=== PATIENT | male | born 1940 | race Caucasian/White ===

== ENCOUNTER 2016-10-26 08:00 | Outpatient (CLI) | payer MEDICARE, OTHER | END 2016-10-26 08:01 | disposition home or self-care (01) | DX: I48.91 Unspecified atrial fibrillation (principal) ==

== ENCOUNTER 2016-11-25 12:47 | Outpatient (CLI) | payer MEDICARE, OTHER | END 2016-11-25 12:48 | disposition home or self-care (01) | DX: I48.91 Unspecified atrial fibrillation (principal) ==

== ENCOUNTER 2016-12-24 13:59 | Outpatient (CLI) | payer MEDICARE, OTHER | END 2016-12-24 14:00 | disposition home or self-care (01) | DX: I48.91 Unspecified atrial fibrillation (principal) ==

== ENCOUNTER 2017-01-02 18:34 | Inpatient (IN) | payer MEDICARE, OTHER ==
[2017-01-02] MEDS ORDERED: LIDOCAINE 2%-EPI 1:100000 20 ML MDV ONE (20:53)
[2017-01-02] MEDS ORDERED: MORPHINE 2 MG/ML SYRINGE IVP STA (21:14)
[2017-01-02] MEDS ORDERED: VANCOMYCIN INJ 1 GM in SODIUM CHLORIDE 0.9% 250 ML IV STA (21:14)
[2017-01-02] MEDS ORDERED: PIPERACILLIN/TAZOBACTAM 3.375 GM in SODIUM CHLORIDE 0.9% MINIBAG 100 ML IV STA (21:14)
[2017-01-02] MEDS ORDERED: SODIUM CHLORIDE 0.9% 1,000 ML IV ONE (21:14)
[2017-01-02] MEDS ORDERED: MORPHINE 2 MG/ML SYRINGE ONE (21:28)
[2017-01-02] MEDS ORDERED: HYDROmorphone 1 MG/ML SYRINGE IVP STA (22:11)
[2017-01-02] MEDS ORDERED: HYDROmorphone 1 MG/ML SYRINGE ONE (22:11)
[2017-01-02] MEDS ORDERED: WATER FOR INJECTION,STERILE 10 ML ONE (22:12)
[2017-01-02] MEDS ORDERED: VANCOMYCIN 1 GM VIAL ONE (22:12)
[2017-01-02] MEDS ORDERED: PROCHLORPERAZINE 10 MG/2 ML VIAL IVP PRN (22:45)
[2017-01-02] MEDS ORDERED: ONDANSETRON 4 MG/2 ML VIAL IVP PRN (22:45)
[2017-01-02] MEDS ORDERED: VANCOMYCIN PER PHARMACY 1 GM in SODIUM CHLORIDE 0.9% 250 ML IV SCH (23:00)
[2017-01-03] MEDS ORDERED: PIPERACILLIN/TAZOBACTAM 3.375 GM in SODIUM CHLORIDE 0.9% MINIBAG 100 ML IV SCH ×2
[2017-01-03] MEDS: HYDROmorphone 1 MG/ML SYRINGE IVP PRN ×4 (00:06→21:57)
[2017-01-03] MEDS: SODIUM CHLORIDE 0.9% 1,000 ML IV SCH ×3 (00:16→22:04)
[2017-01-03] MEDS: cloNIDine 0.1 MG TABLET PO SCH ×3 (00:24→22:00)
[2017-01-03] MEDS: LOSARTAN 50 MG TABLET PO SCH ×3 (00:32→22:00)
[2017-01-03] MEDS: PIPERACILLIN/TAZOBACTAM 3.375 GM in SODIUM CHLORIDE 0.9% MINIBAG 100 ML IV SCH ×4 (03:19→21:58)
[2017-01-03] MEDS: PANTOPRAZOLE 40 MG TABLET PO SCH (06:35)
[2017-01-03] MEDS: SODIUM CHLORIDE FLUSH 0.9% 10 ML SYRINGE IVP SCH ×3 (06:36→22:04)
[2017-01-03] MEDS: METOPROLOL SUCCINATE 50 MG TABLET PO SCH ×2 (09:01→22:00)
[2017-01-03] MEDS: FOLIC ACID 1 MG TABLET PO SCH (09:01)
[2017-01-03] MEDS: THIAMINE 100 MG TABLET PO SCH (09:01)
[2017-01-03] MEDS: ASPIRIN EC 81 MG TABLET PO SCH (09:01)
[2017-01-03] MEDS: amLODIPine 5 MG TABLET PO SCH (09:01)
[2017-01-03] MEDS: POLYETHYLENE GLYCOL 3350 17 GM PACKET PO SCH (09:02)
[2017-01-03] MEDS: oxyCODONE 5 MG TABLET PO PRN ×2 (09:08→22:01)
[2017-01-03] MEDS: VANCOMYCIN INJ 1 GM in SODIUM CHLORIDE 0.9% 250 ML IV SCH (13:20)
[2017-01-03] MEDS ORDERED: WARFARIN 1 MG TABLET PO SCH (14:00)
[2017-01-03] MEDS: ATORVASTATIN 10 MG TABLET PO SCH (22:00)
[2017-01-04] MEDS: VANCOMYCIN INJ 1 GM in SODIUM CHLORIDE 0.9% 250 ML IV SCH ×3 (01:17→14:15)
[2017-01-04] MEDS: PIPERACILLIN/TAZOBACTAM 3.375 GM in SODIUM CHLORIDE 0.9% MINIBAG 100 ML IV SCH ×4 (03:06→20:35)
[2017-01-04] MEDS: HYDROmorphone 1 MG/ML SYRINGE IVP PRN ×6 (04:49→23:29)
[2017-01-04] MEDS: SODIUM CHLORIDE 0.9% 1,000 ML IV SCH ×2 (06:36→23:32)
[2017-01-04] MEDS: SODIUM CHLORIDE FLUSH 0.9% 10 ML SYRINGE IVP SCH ×3 (06:37→15:47)
[2017-01-04] MEDS: PANTOPRAZOLE 40 MG TABLET PO SCH (06:52)
[2017-01-04] MEDS: oxyCODONE 5 MG TABLET PO PRN ×3 (06:53→17:18)
[2017-01-04] MEDS: FOLIC ACID 1 MG TABLET PO SCH (08:11)
[2017-01-04] MEDS: amLODIPine 5 MG TABLET PO SCH (08:11)
[2017-01-04] MEDS: LOSARTAN 50 MG TABLET PO SCH ×2 (08:11→20:49)
[2017-01-04] MEDS: ASPIRIN EC 81 MG TABLET PO SCH (08:12)
[2017-01-04] MEDS: cloNIDine 0.1 MG TABLET PO SCH ×2 (08:12→22:30)
[2017-01-04] MEDS: THIAMINE 100 MG TABLET PO SCH (08:12)
[2017-01-04] MEDS: METOPROLOL SUCCINATE 50 MG TABLET PO SCH ×2 (08:12→20:49)
[2017-01-04] MEDS: POLYETHYLENE GLYCOL 3350 17 GM PACKET PO SCH (08:12)
[2017-01-04] MEDS: SENNA 8.6 MG TABLET PO SCH (20:49)
[2017-01-04] MEDS: ATORVASTATIN 10 MG TABLET PO SCH (20:49)
[2017-01-05] MEDS: SODIUM CHLORIDE 0.9% 1,000 ML IV SCH ×3 (00:40→22:25)
[2017-01-05] MEDS: SENNA 8.6 MG TABLET PO SCH ×3 (01:41→13:39)
[2017-01-05] MEDS: VANCOMYCIN INJ 1 GM in SODIUM CHLORIDE 0.9% 250 ML IV SCH ×2 (01:44→13:39)
[2017-01-05] MEDS: DOCUSATE SODIUM 250 MG CAPSULE PO PRN (01:55)
[2017-01-05] MEDS: oxyCODONE 5 MG TABLET PO PRN ×4 (01:55→21:29)
[2017-01-05] MEDS: PIPERACILLIN/TAZOBACTAM 3.375 GM in SODIUM CHLORIDE 0.9% MINIBAG 100 ML IV SCH ×4 (03:17→21:27)
[2017-01-05] MEDS: SODIUM CHLORIDE FLUSH 0.9% 10 ML SYRINGE IVP SCH ×3 (06:07→22:26)
[2017-01-05] MEDS: PANTOPRAZOLE 40 MG TABLET PO SCH (06:23)
[2017-01-05] MEDS: HYDROmorphone 1 MG/ML SYRINGE IVP PRN ×3 (08:11→19:52)
[2017-01-05] MEDS: POLYETHYLENE GLYCOL 3350 17 GM PACKET PO SCH (08:14)
[2017-01-05] MEDS: METOPROLOL SUCCINATE 50 MG TABLET PO SCH ×2 (08:15→21:30)
[2017-01-05] MEDS: ASPIRIN EC 81 MG TABLET PO SCH (08:16)
[2017-01-05] MEDS: amLODIPine 5 MG TABLET PO SCH (08:16)
[2017-01-05] MEDS: FOLIC ACID 1 MG TABLET PO SCH (08:17)
[2017-01-05] MEDS: LOSARTAN 50 MG TABLET PO SCH ×2 (08:18→21:30)
[2017-01-05] MEDS: THIAMINE 100 MG TABLET PO SCH (08:18)
[2017-01-05] MEDS: cloNIDine 0.1 MG TABLET PO SCH ×2 (08:18→21:30)
[2017-01-05] MEDS: ATORVASTATIN 10 MG TABLET PO SCH (21:29)
[2017-01-05] MEDS ORDERED: MAGNESIUM HYDROXIDE 2,400 MG/30 ML UDC PO ONE (22:00)
[2017-01-06] MEDS: SODIUM CHLORIDE 0.9% 1,000 ML IV SCH ×3 (01:04→20:05)
[2017-01-06] MEDS: oxyCODONE 5 MG TABLET PO PRN ×3 (02:34→13:08)
[2017-01-06] MEDS: PIPERACILLIN/TAZOBACTAM 3.375 GM in SODIUM CHLORIDE 0.9% MINIBAG 100 ML IV SCH ×3 (02:35→14:17)
[2017-01-06] MEDS: SODIUM CHLORIDE FLUSH 0.9% 10 ML SYRINGE IVP SCH ×3 (05:32→20:24)
[2017-01-06] MEDS: PANTOPRAZOLE 40 MG TABLET PO SCH (06:06)
[2017-01-06] MEDS ORDERED: VANCOMYCIN INJ 1 GM in SODIUM CHLORIDE 0.9% 250 ML IV SCH (08:00)
[2017-01-06] MEDS: POLYETHYLENE GLYCOL 3350 17 GM PACKET PO SCH (08:35)
[2017-01-06] MEDS: LOSARTAN 50 MG TABLET PO SCH ×2 (08:36→20:32)
[2017-01-06] MEDS: amLODIPine 5 MG TABLET PO SCH (08:36)
[2017-01-06] MEDS: cloNIDine 0.1 MG TABLET PO SCH ×2 (08:36→20:23)
[2017-01-06] MEDS: ASPIRIN EC 81 MG TABLET PO SCH (08:36)
[2017-01-06] MEDS: THIAMINE 100 MG TABLET PO SCH (08:36)
[2017-01-06] MEDS: FOLIC ACID 1 MG TABLET PO SCH (08:36)
[2017-01-06] MEDS: METOPROLOL SUCCINATE 50 MG TABLET PO SCH ×2 (08:37→20:24)
[2017-01-06] MEDS ORDERED: HYDROmorphone 1 MG/ML SYRINGE IVP STA (15:22)
[2017-01-06] MEDS ORDERED: PHYTONADIONE 10 MG/ML AMP IVP STA ×2 (15:35→16:17)
[2017-01-06] MEDS: ACETAMINOPHEN 325 MG TABLET PO PRN (16:56)
[2017-01-06] MEDS ORDERED: PHYTONADIONE INJ (ADULT) 10 MG in SODIUM CHLORIDE 0.9% 50 ML IV ONE (17:00)
[2017-01-06] MEDS: AMPICILLIN/SULBACTAM 3 GM in SODIUM CHLORIDE 0.9% MINIBAG 100 ML IV SCH (18:40)
[2017-01-06] MEDS: OXYBUTYNIN 5MG TABLET PO SCH (20:23)
[2017-01-06] MEDS: ATORVASTATIN 10 MG TABLET PO SCH (20:23)
[2017-01-06] MEDS ORDERED: METOPROLOL TARTRATE 25 MG TABLET PO SCH (21:00)
[2017-01-06] MEDS: HYDROmorphone 1 MG/ML SYRINGE IVP PRN (21:06)
[2017-01-07] MEDS ORDERED: hydrALAZINE INJ 20 MG/ML VIAL IVP SCH (00:25)
[2017-01-07] MEDS: AMPICILLIN/SULBACTAM 3 GM in SODIUM CHLORIDE 0.9% MINIBAG 100 ML IV SCH ×4 (00:37→20:08)
[2017-01-07] MEDS: HYDROmorphone 1 MG/ML SYRINGE IVP PRN ×5 (02:54→16:55)
[2017-01-07] MEDS ORDERED: amLODIPine 5 MG TABLET PO STA ×2 (03:05)
[2017-01-07] MEDS: PANTOPRAZOLE 40 MG TABLET PO SCH (06:04)
[2017-01-07] MEDS: SODIUM CHLORIDE FLUSH 0.9% 10 ML SYRINGE IVP SCH ×3 (06:04→16:32)
[2017-01-07] MEDS: POTASSIUM CHLOR 10 MEQ/100 ML 100 ML IV SCH ×5 (07:52→17:44)
[2017-01-07] MEDS: SODIUM CHLORIDE FLUSH 0.9% 10 ML SYRINGE IVP PRN ×4 (07:52→16:32)
[2017-01-07] MEDS: METOPROLOL SUCCINATE 50 MG TABLET PO SCH ×2 (08:24→21:45)
[2017-01-07] MEDS: amLODIPine 5 MG TABLET PO SCH (08:25)
[2017-01-07] MEDS ORDERED: LIDOCAINE-MPF 2% 5 ML VIAL IM ONE (09:50)
[2017-01-07] MEDS ORDERED: MIDAZOLAM 2 MG/2 ML VIAL IVP ONE (09:50)
[2017-01-07] MEDS ORDERED: DEXAMETHASONE 4 MG/ML VIAL IVP ONE (09:50)
[2017-01-07] MEDS ORDERED: PROPOFOL 200 MG/20 ML VIAL IVP ONE (09:50)
[2017-01-07] MEDS ORDERED: ePHEDrine 50 MG/ML AMP IVP ONE (09:50)
[2017-01-07] MEDS ORDERED: TRANEXAMIC ACID 1,000 MG/10 ML VIAL IV ONE (09:50)
[2017-01-07] MEDS ORDERED: ONDANSETRON 4 MG/2 ML VIAL IVP ONE (09:50)
[2017-01-07] MEDS ORDERED: fentaNYL 100 MCG/2 ML VIAL IVP ONE (09:50)
[2017-01-07] MEDS ORDERED: LACTATED RINGERS 1,000 ML IV ONE ×4 (10:03→11:55)
[2017-01-07] MEDS: LOSARTAN 50 MG TABLET PO SCH ×2 (10:12→21:45)
[2017-01-07] MEDS: ASPIRIN EC 81 MG TABLET PO SCH (10:12)
[2017-01-07] MEDS: cloNIDine 0.1 MG TABLET PO SCH ×2 (10:12→21:46)
[2017-01-07] MEDS: FOLIC ACID 1 MG TABLET PO SCH (10:12)
[2017-01-07] MEDS: POLYETHYLENE GLYCOL 3350 17 GM PACKET PO SCH (10:13)
[2017-01-07] MEDS: THIAMINE 100 MG TABLET PO SCH (10:13)
[2017-01-07] MEDS: fentaNYL 100 MCG/2 ML VIAL ONE ×2 (12:08→12:14)
[2017-01-07] MEDS: HYDROmorphone 1 MG/ML SYRINGE ONE ×3 (12:25→12:45)
[2017-01-07] MEDS ORDERED: HYDROmorphone 1 MG/ML SYRINGE ONE (12:42)
[2017-01-07] MEDS: oxyCODONE 5 MG TABLET PO PRN ×2 (14:21→21:45)
[2017-01-07] MEDS: ACETAMINOPHEN 325 MG TABLET PO PRN (16:30)
[2017-01-07] MEDS: ATORVASTATIN 10 MG TABLET PO SCH (21:45)
[2017-01-07] MEDS: OXYBUTYNIN 5MG TABLET PO SCH (21:48)
[2017-01-08] MEDS: AMPICILLIN/SULBACTAM 3 GM in SODIUM CHLORIDE 0.9% MINIBAG 100 ML IV SCH ×2 (00:16→06:42)
[2017-01-08] MEDS: SODIUM CHLORIDE FLUSH 0.9% 10 ML SYRINGE IVP PRN ×2 (00:17→08:43)
[2017-01-08] MEDS: oxyCODONE 5 MG TABLET PO PRN ×3 (01:51→16:06)
[2017-01-08] MEDS: PANTOPRAZOLE 40 MG TABLET PO SCH (06:41)
[2017-01-08] MEDS: SODIUM CHLORIDE FLUSH 0.9% 10 ML SYRINGE IVP SCH ×3 (06:42→20:46)
[2017-01-08] MEDS: HYDROmorphone 1 MG/ML SYRINGE IVP PRN ×4 (07:25→17:15)
[2017-01-08] MEDS: LORazepam 2 MG/ML SYRINGE IVP PRN ×2 (08:42→17:15)
[2017-01-08] MEDS: ASPIRIN EC 81 MG TABLET PO SCH (08:44)
[2017-01-08] MEDS: FOLIC ACID 1 MG TABLET PO SCH (08:44)
[2017-01-08] MEDS: THIAMINE 100 MG TABLET PO SCH (08:44)
[2017-01-08] MEDS: amLODIPine 5 MG TABLET PO SCH (08:44)
[2017-01-08] MEDS: cloNIDine 0.1 MG TABLET PO SCH ×2 (08:44→20:46)
[2017-01-08] MEDS: METOPROLOL SUCCINATE 50 MG TABLET PO SCH ×2 (08:44→20:46)
[2017-01-08] MEDS: LOSARTAN 50 MG TABLET PO SCH ×2 (08:45→20:46)
[2017-01-08] MEDS: POLYETHYLENE GLYCOL 3350 17 GM PACKET PO SCH (08:46)
[2017-01-08] MEDS: cefTRIAXone 2 GM in SODIUM CHLORIDE 0.9% MINIBAG 100 ML IV SCH (08:47)
[2017-01-08] MEDS: SODIUM CHLORIDE 0.9% 1,000 ML IV SCH ×3 (08:47→23:40)
[2017-01-08] MEDS ORDERED: WARFARIN 1 MG TABLET PO SCH (12:00)
[2017-01-08] MEDS: OXYBUTYNIN 5MG TABLET PO SCH (20:46)
[2017-01-08] MEDS: ATORVASTATIN 10 MG TABLET PO SCH (20:46)
[2017-01-09] MEDS: oxyCODONE 5 MG TABLET PO PRN ×4 (04:33→21:13)
[2017-01-09] MEDS: HYDROmorphone 1 MG/ML SYRINGE IVP PRN ×5 (04:54→23:59)
[2017-01-09] MEDS: SODIUM CHLORIDE FLUSH 0.9% 10 ML SYRINGE IVP SCH ×3 (05:31→20:52)
[2017-01-09] MEDS: PANTOPRAZOLE 40 MG TABLET PO SCH (06:17)
[2017-01-09] MEDS: SODIUM CHLORIDE 0.9% 1,000 ML IV SCH ×3 (07:15→23:58)
[2017-01-09] MEDS ORDERED: POTASSIUM CHLORIDE 20 MEQ TABLET PO ONE (08:15)
[2017-01-09] MEDS: cloNIDine 0.1 MG TABLET PO SCH ×2 (09:50→20:56)
[2017-01-09] MEDS: cefTRIAXone 2 GM in SODIUM CHLORIDE 0.9% MINIBAG 100 ML IV SCH (09:50)
[2017-01-09] MEDS: ASPIRIN EC 81 MG TABLET PO SCH (09:50)
[2017-01-09] MEDS: POLYETHYLENE GLYCOL 3350 17 GM PACKET PO SCH (09:51)
[2017-01-09] MEDS: THIAMINE 100 MG TABLET PO SCH (09:51)
[2017-01-09] MEDS: FOLIC ACID 1 MG TABLET PO SCH (09:51)
[2017-01-09] MEDS: DOCUSATE SODIUM 250 MG CAPSULE PO PRN (09:51)
[2017-01-09] MEDS: METOPROLOL SUCCINATE 50 MG TABLET PO SCH ×2 (09:54→20:56)
[2017-01-09] MEDS: amLODIPine 5 MG TABLET PO SCH (09:54)
[2017-01-09] MEDS: LOSARTAN 50 MG TABLET PO SCH ×2 (09:54→20:56)
[2017-01-09] MEDS ORDERED: MIDAZOLAM 2 MG/2 ML VIAL IVP ONE (12:00)
[2017-01-09] MEDS: WARFARIN 1 MG TABLET PO SCH (14:55)
[2017-01-09] MEDS: ATORVASTATIN 10 MG TABLET PO SCH (20:56)
[2017-01-09] MEDS: OXYBUTYNIN 5MG TABLET PO SCH (21:01)
[2017-01-09] MEDS: LORazepam 2 MG/ML SYRINGE IVP PRN (21:13)
[2017-01-10] MEDS: HYDROmorphone 1 MG/ML SYRINGE IVP PRN ×3 (05:52→20:31)
[2017-01-10] MEDS: SODIUM CHLORIDE FLUSH 0.9% 10 ML SYRINGE IVP SCH ×3 (06:50→20:35)
[2017-01-10] MEDS: PANTOPRAZOLE 40 MG TABLET PO SCH (06:53)
[2017-01-10] MEDS: cefTRIAXone 2 GM in SODIUM CHLORIDE 0.9% MINIBAG 100 ML IV SCH (08:29)
[2017-01-10] MEDS: SODIUM CHLORIDE 0.9% 1,000 ML IV SCH ×2 (08:29→17:01)
[2017-01-10] MEDS: LOSARTAN 50 MG TABLET PO SCH ×2 (08:30→20:34)
[2017-01-10] MEDS: cloNIDine 0.1 MG TABLET PO SCH ×2 (08:30→20:34)
[2017-01-10] MEDS: POLYETHYLENE GLYCOL 3350 17 GM PACKET PO SCH (08:30)
[2017-01-10] MEDS: amLODIPine 5 MG TABLET PO SCH (08:30)
[2017-01-10] MEDS: SENNA 8.6 MG TABLET PO SCH ×2 (08:30→20:35)
[2017-01-10] MEDS: ASPIRIN EC 81 MG TABLET PO SCH (08:30)
[2017-01-10] MEDS: METOPROLOL SUCCINATE 50 MG TABLET PO SCH ×2 (08:30→20:35)
[2017-01-10] MEDS: FOLIC ACID 1 MG TABLET PO SCH (08:30)
[2017-01-10] MEDS: THIAMINE 100 MG TABLET PO SCH (08:33)
[2017-01-10] MEDS: oxyCODONE 5 MG TABLET PO PRN ×2 (11:44→20:33)
[2017-01-10] MEDS: WARFARIN 1 MG TABLET PO SCH (14:50)
[2017-01-10] MEDS ORDERED: SODIUM CHLORIDE FLUSH 0.9% 10 ML SYRINGE IVP PRN ×2 (15:23)
[2017-01-10] MEDS ORDERED: MAGNESIUM HYDROXIDE 2,400 MG/30 ML UDC PO ONE (18:00)
[2017-01-10] MEDS: DOCUSATE SODIUM 250 MG CAPSULE PO SCH (20:34)
[2017-01-10] MEDS: ATORVASTATIN 10 MG TABLET PO SCH (20:34)
[2017-01-10] MEDS: OXYBUTYNIN 5MG TABLET PO SCH (20:35)
[2017-01-11] MEDS: HYDROmorphone 1 MG/ML SYRINGE IVP PRN ×4 (04:38→13:29)
[2017-01-11] MEDS: oxyCODONE 5 MG TABLET PO PRN (04:38)
[2017-01-11] MEDS: PANTOPRAZOLE 40 MG TABLET PO SCH (06:32)
[2017-01-11] MEDS: SODIUM CHLORIDE FLUSH 0.9% 10 ML SYRINGE IVP SCH ×2 (06:32→08:16)
[2017-01-11] MEDS: SODIUM CHLORIDE 0.9% 1,000 ML IV SCH ×2 (08:10)
[2017-01-11] MEDS: cefTRIAXone 2 GM in SODIUM CHLORIDE 0.9% MINIBAG 100 ML IV SCH (08:12)
[2017-01-11] MEDS: cloNIDine 0.1 MG TABLET PO SCH (08:13)
[2017-01-11] MEDS: METOPROLOL SUCCINATE 50 MG TABLET PO SCH (08:14)
[2017-01-11] MEDS: amLODIPine 5 MG TABLET PO SCH (08:15)
[2017-01-11] MEDS: LOSARTAN 50 MG TABLET PO SCH (08:15)
[2017-01-11] MEDS: SENNA 8.6 MG TABLET PO SCH ×2 (08:15)
[2017-01-11] MEDS: FOLIC ACID 1 MG TABLET PO SCH (08:15)
[2017-01-11] MEDS: ASPIRIN EC 81 MG TABLET PO SCH (08:15)
[2017-01-11] MEDS: POLYETHYLENE GLYCOL 3350 17 GM PACKET PO SCH (08:15)
[2017-01-11] MEDS: THIAMINE 100 MG TABLET PO SCH (08:15)
[2017-01-11] MEDS: DOCUSATE SODIUM 250 MG CAPSULE PO SCH (08:15)
== END 2017-01-11 13:37 | DRG 464 ==
PROC: 02PYX3Z Removal of Infusion Device from Great Vessel, External Approach (ICD-10-PCS; principal; 2017-01-07 09:00)
PROC: 0SPV0JZ Removal of Synthetic Substitute from Right Knee Joint, Tibial Surface, Open Approach (ICD-10-PCS; principal; 2017-01-07 09:00)
PROC: 02HV33Z Insertion of Infusion Device into Superior Vena Cava, Percutaneous Approach (ICD-10-PCS; principal; 2017-01-07 09:00)
PROC: 0SHC08Z Insertion of Spacer into Right Knee Joint, Open Approach (ICD-10-PCS; principal; 2017-01-07 09:00)
PROC: 0SPT0JZ Removal of Synthetic Substitute from Right Knee Joint, Femoral Surface, Open Approach (ICD-10-PCS; principal; 2017-01-07 09:00)
PROC: 02HV33Z Insertion of Infusion Device into Superior Vena Cava, Percutaneous Approach (ICD-10-PCS; 2017-01-10)
PROC: 30233N1 Transfusion of Nonautologous Red Blood Cells into Peripheral Vein, Percutaneous Approach (ICD-10-PCS; 2017-01-10)
DX: T84.53XA Infection and inflammatory reaction due to internal right knee prosthesis, initial encounter (principal); M00.9 Pyogenic arthritis, unspecified; I48.91 Unspecified atrial fibrillation; M00.861 Arthritis due to other bacteria, right knee; N17.9 Acute kidney failure, unspecified; L76.32 Postprocedural hematoma of skin and subcutaneous tissue following other procedure; Z79.82 Long term (current) use of aspirin; Y79.3 Surgical instruments, materials and orthopedic devices (including sutures) associated with adverse incidents; Z96.651 Presence of right artificial knee joint; Y83.4 Other reconstructive surgery as the cause of abnormal reaction of the patient, or of later complication, without mention of misadventure at the time of the procedure; B96.3 Hemophilus influenzae [H. influenzae] as the cause of diseases classified elsewhere; I48.2 Chronic atrial fibrillation; Y84.8 Other medical procedures as the cause of abnormal reaction of the patient, or of later complication, without mention of misadventure at the time of the procedure; Y71.8 Miscellaneous cardiovascular devices associated with adverse incidents, not elsewhere classified; Y92.239 Unspecified place in hospital as the place of occurrence of the external cause; E78.5 Hyperlipidemia, unspecified; D50.0 Iron deficiency anemia secondary to blood loss (chronic); I10 Essential (primary) hypertension; E86.0 Dehydration; E87.6 Hypokalemia; I25.10 Atherosclerotic heart disease of native coronary artery without angina pectoris; K21.9 Gastro-esophageal reflux disease without esophagitis; I25.2 Old myocardial infarction; Z96.653 Presence of artificial knee joint, bilateral; Z66 Do not resuscitate; Z95.1 Presence of aortocoronary bypass graft; Z79.01 Long term (current) use of anticoagulants; Z86.73 Personal history of transient ischemic attack (TIA), and cerebral infarction without residual deficits; Z85.828 Personal history of other malignant neoplasm of skin; Z87.891 Personal history of nicotine dependence

== ENCOUNTER 2017-01-11 11:06 | Outpatient (CLI) | payer MEDICARE, OTHER | END 2017-01-11 23:59 | disposition home or self-care (01) | DX: N39.0 Urinary tract infection, site not specified (principal) ==

== ENCOUNTER 2017-01-11 13:51 | Outpatient (CLI) | payer MEDICARE, OTHER | END 2017-01-11 13:52 | disposition home or self-care (01) | DX: Z74.01 Bed confinement status (principal) | CPT/HCPCS: A0425; A0428 ==

== ENCOUNTER 2017-01-17 10:39 | Outpatient (CLI) | payer MEDICARE, OTHER | END 2017-01-17 10:40 | disposition home or self-care (01) | DX: D50.9 Iron deficiency anemia, unspecified (principal) ==

== ENCOUNTER 2017-01-27 07:06 | Outpatient (CLI) | payer MEDICARE, OTHER | END 2017-01-27 07:07 | disposition critical access hospital (66) | DX: R55 Syncope and collapse (principal) | CPT/HCPCS: A0425; A0429 ==

== ENCOUNTER 2017-01-27 07:14 | Observation (INO) | payer MEDICARE, OTHER ==
[2017-01-27] MEDS ORDERED: oxyCODONE 5 MG TABLET PO STA (09:56)
[2017-01-27] MEDS ORDERED: oxyCODONE 5 MG TABLET ONE (10:05)
[2017-01-27] MEDS ORDERED: ONDANSETRON ODT 4 MG TABLET TL PRN (11:32)
[2017-01-27] MEDS ORDERED: ACETAMINOPHEN 325 MG TABLET PO PRN ×2 (11:32→12:12)
[2017-01-27] MEDS ORDERED: SODIUM CHLORIDE FLUSH 0.9% 10 ML SYRINGE IVP PRN ×2 (11:32→12:12)
[2017-01-27] MEDS ORDERED: oxyCODONE 5 MG TABLET PO PRN (11:49)
[2017-01-27] MEDS ORDERED: NON FORMULARY MED (Levofloxacin [Levaquin] 500 MG) PO SCH (12:00)
[2017-01-27] MEDS ORDERED: ASPIRIN EC 81 MG TABLET PO SCH ×2 (12:00→13:00)
[2017-01-27] MEDS ORDERED: SODIUM CHLORIDE 0.9% 1,000 ML IV SCH ×2 (12:00→13:00)
[2017-01-27] MEDS: ONDANSETRON ODT 4 MG TABLET TL PRN (12:38)
[2017-01-27] MEDS ORDERED: levoFLOXacin 250 MG TABLET PO SCH (13:00)
[2017-01-27] MEDS: oxyCODONE 5 MG TABLET PO PRN ×3 (13:30→21:13)
[2017-01-27] MEDS ORDERED: SODIUM CHLORIDE FLUSH 0.9% 10 ML SYRINGE IVP SCH (14:00)
[2017-01-27] MEDS: SODIUM CHLORIDE FLUSH 0.9% 10 ML SYRINGE IVP SCH ×2 (14:33→17:18)
[2017-01-27] MEDS ORDERED: MIN OIL/DIMETHICON/COCONUT OIL 92 GM TUBE TOP ONE (19:02)
[2017-01-27] MEDS ORDERED: ATORVASTATIN 40 MG TABLET PO SCH ×2 (21:00)
[2017-01-27] MEDS: METOPROLOL TARTRATE 25 MG TABLET PO SCH (21:12)
[2017-01-28] MEDS: oxyCODONE 5 MG TABLET PO PRN ×3 (01:30→15:49)
[2017-01-28] MEDS: SODIUM CHLORIDE FLUSH 0.9% 10 ML SYRINGE IVP SCH ×2 (04:59→14:40)
[2017-01-28] MEDS ORDERED: FERROUS SULFATE 325 MG TABLET PO SCH (08:00)
[2017-01-28] MEDS ORDERED: FERROUS SULFATE PO SCH (09:00)
[2017-01-28] MEDS ORDERED: FAMOTIDINE 20 MG TABLET PO SCH ×2 (09:00)
[2017-01-28] MEDS ORDERED: POLYETHYLENE GLYCOL 3350 17 GM PACKET PO SCH ×2 (09:00)
[2017-01-28] MEDS: ONDANSETRON ODT 4 MG TABLET TL PRN (09:58)
[2017-01-28] MEDS: METOPROLOL TARTRATE 25 MG TABLET PO SCH (10:44)
[2017-01-28] MEDS ORDERED: AMOX/CLAV 875 MG/125 MG TABLET PO SCH (11:00)
== END 2017-01-28 15:45 ==
DX: G93.40 Encephalopathy, unspecified (principal); R47.01 Aphasia; N17.9 Acute kidney failure, unspecified; D64.9 Anemia, unspecified; I12.0 Hypertensive chronic kidney disease with stage 5 chronic kidney disease or end stage renal disease; E86.0 Dehydration; T50.0X5A Adverse effect of mineralocorticoids and their antagonists, initial encounter; E78.5 Hyperlipidemia, unspecified; N18.3 Chronic kidney disease, stage 3 (moderate); F11.20 Opioid dependence, uncomplicated; M00.861 Arthritis due to other bacteria, right knee; B96.89 Other specified bacterial agents as the cause of diseases classified elsewhere; L89.153 Pressure ulcer of sacral region, stage 3; I48.91 Unspecified atrial fibrillation; K21.9 Gastro-esophageal reflux disease without esophagitis; I25.10 Atherosclerotic heart disease of native coronary artery without angina pectoris; I25.2 Old myocardial infarction; Z95.1 Presence of aortocoronary bypass graft; Z79.01 Long term (current) use of anticoagulants; Z86.73 Personal history of transient ischemic attack (TIA), and cerebral infarction without residual deficits; Z96.653 Presence of artificial knee joint, bilateral; Z85.828 Personal history of other malignant neoplasm of skin; Z79.82 Long term (current) use of aspirin; Z87.891 Personal history of nicotine dependence; Z82.3 Family history of stroke
CPT/HCPCS: 36415; 70450; 70544; 70551; 71010; 80048; 80053; 80061; 81003; 83605; 83690; 84484; 85025; 85610; 87040; 92523; 93005; 93010; 93306; 93880; 96360; 96361; 97162; 97165; 97530; 99285; A6250; A9270; G0378; G8978; G8979; G8986; G8987; G8988; G9162; G9163; G9164; Q0162

== ENCOUNTER 2017-01-31 08:00 | Outpatient (CLI) | payer MEDICARE, OTHER | END 2017-01-31 08:01 | DX: E87.6 Hypokalemia (principal) ==

== ENCOUNTER 2017-02-16 12:40 | Outpatient (CLI) | payer MEDICARE, OTHER | END 2017-02-16 12:41 | DX: T84.53XD Infection and inflammatory reaction due to internal right knee prosthesis, subsequent encounter (principal) ==

== ENCOUNTER 2017-02-16 12:40 | Outpatient (CLI) | payer MEDICARE, OTHER | END 2017-02-16 12:41 | disposition home or self-care (01) | DX: T84.53XD Infection and inflammatory reaction due to internal right knee prosthesis, subsequent encounter (principal) ==

== ENCOUNTER 2017-02-21 06:01 | Inpatient (IN) | payer MEDICARE, OTHER ==
[2017-02-21] MEDS ORDERED: ceFAZolin 2 GM/50 ML 50 ML IV ONE (06:26)
[2017-02-21] MEDS ORDERED: LACTATED RINGERS 1,000 ML IV ONE ×2 (06:29→13:04)
[2017-02-21] MEDS ORDERED: BUPIVACAINE 0.5%-EPI 1:200000 PF 30 ML VIAL SUBQ ONE (08:28)
[2017-02-21] MEDS ORDERED: KETOROLAC 30 MG/ML VIAL IM ONE (08:29)
[2017-02-21] MEDS ORDERED: KETOROLAC 30 MG/ML VIAL IVP ONE (08:29)
[2017-02-21] MEDS ORDERED: EPINEPHrine 1 MG/ML AMP IVP ONE (08:47)
[2017-02-21] MEDS ORDERED: MIDAZOLAM 2 MG/2 ML VIAL IVP ONE (09:00)
[2017-02-21] MEDS ORDERED: fentaNYL 100 MCG/2 ML VIAL IVP ONE (09:00)
[2017-02-21] MEDS ORDERED: ONDANSETRON 4 MG/2 ML VIAL IVP ONE (09:00)
[2017-02-21] MEDS ORDERED: ROPIVACAINE 0.5% PF 20 ML AMPULE EP ONE (09:00)
[2017-02-21] MEDS ORDERED: ACETAMINOPHEN 1,000 MG/100 ML VIAL IV ONE (09:00)
[2017-02-21] MEDS ORDERED: DEXAMETHASONE 4 MG/ML VIAL IVP ONE (09:00)
[2017-02-21] MEDS ORDERED: ROCURONIUM 50 MG/5 ML VIAL IVP ONE (09:00)
[2017-02-21] MEDS ORDERED: SUCCINYLCHOLINE 200 MG/10 ML VIAL IVP ONE (09:00)
[2017-02-21] MEDS ORDERED: PROPOFOL 200 MG/20 ML VIAL IVP ONE (09:00)
[2017-02-21] MEDS ORDERED: LABETALOL 5 MG/1 ML 20 ML MDV IV ONE (09:00)
[2017-02-21] MEDS ORDERED: MORPHINE PF 5 MG/10 ML AMP SUBQ ONE (09:07)
[2017-02-21] MEDS ORDERED: ACETAMINOPHEN 325 MG TABLET PO PRN (12:04)
[2017-02-21] MEDS ORDERED: PROCHLORPERAZINE 10 MG/2 ML VIAL IVP PRN (12:04)
[2017-02-21] MEDS ORDERED: SODIUM CHLORIDE FLUSH 0.9% 10 ML SYRINGE IVP PRN (12:04)
[2017-02-21] MEDS ORDERED: diphenhydrAMINE 25 MG CAPSULE PO PRN (12:04)
[2017-02-21] MEDS ORDERED: ONDANSETRON 4 MG/2 ML VIAL IVP PRN (12:04)
[2017-02-21] MEDS ORDERED: ACETAMINOPHEN 1,000 MG/100 ML 100 ML IV PRN (12:04)
[2017-02-21] MEDS ORDERED: traZODone 50 MG TABLET PO PRN (12:09)
--- NOTE | 2017-02-21 12:16 | OPERATIVE REPORT ---
Surgery Post-Op - General Admit Date: 02/21/17 Procedure Date: 02/21/17 Pre-Op Diagnosis: Infected Right Knee Partial Knee Replacement. s/p Removal of implants and placement of nonbiodegradable drug delivery device (PMMA plus Antibiotics). Operative Procedure: Removal of nonbiodegradable drug delivery device (PMMA plus antibiotics), revision to Right Total Knee Arthroplasty. Post-Op Diagnosis: Same. - Procedure Note Anesthesia Technique: Primary Surgeon: Canelo Jett MD Estimated Blood Loss (in cc): 50 Drain/Tube Type: positive: Other (None.) Complications: None. - Other Other Information/Narrative: Implants: Brian NexGen PS LPS-Flex Femoral Component Size G. Stemmed Tibial Component, Size 6 Taper Stem Plug Highly Cross-linked PE LPS-Flex Tibial Insert, Size GH x 10 mm. Persona All Poly Patella, 35 x 9 mm. Condition: Stable Disposition: PACU >> MedSur
[2017-02-21] MEDS: fentaNYL 100 MCG/2 ML VIAL ONE ×3 (12:18→12:39)
[2017-02-21] MEDS: D5.45NS W/20 MEQ KCL 1,000 ML IV SCH ×2 (13:13→20:59)
[2017-02-21] MEDS: SODIUM CHLORIDE FLUSH 0.9% 10 ML SYRINGE IVP SCH ×2 (13:21→20:56)
[2017-02-21] MEDS: ceFAZolin 2 GM/50 ML 50 ML IV SCH (16:20)
[2017-02-21] MEDS: oxyCOD/ACETAMIN 5 MG/325 MG TABLET PO PRN ×2 (16:20→20:55)
[2017-02-21] MEDS: TERAZOSIN 5 MG CAPSULE PO SCH (20:51)
[2017-02-21] MEDS: METOPROLOL TARTRATE 25 MG TABLET PO SCH (20:52)
[2017-02-21] MEDS: OXYBUTYNIN 5MG TABLET PO SCH (20:52)
[2017-02-21] MEDS: LOSARTAN 50 MG TABLET PO SCH (20:52)
[2017-02-21] MEDS: ATORVASTATIN 40 MG TABLET PO SCH (20:52)
[2017-02-22] MEDS: ceFAZolin 2 GM/50 ML 50 ML IV SCH (01:05)
[2017-02-22] MEDS: oxyCOD/ACETAMIN 5 MG/325 MG TABLET PO PRN ×5 (05:59→23:53)
[2017-02-22] MEDS: SODIUM CHLORIDE FLUSH 0.9% 10 ML SYRINGE IVP SCH ×3 (06:50→21:34)
[2017-02-22] MEDS: MAGNESIUM OXIDE 400 MG TABLET PO SCH (08:12)
[2017-02-22] MEDS: LOSARTAN 50 MG TABLET PO SCH ×2 (08:12→21:32)
[2017-02-22] MEDS: METOPROLOL TARTRATE 25 MG TABLET PO SCH ×2 (08:12→21:32)
[2017-02-22] MEDS: cloNIDine 0.1 MG TABLET PO SCH (08:12)
[2017-02-22] MEDS: MULTIVITAMIN W/MINERALS TABLET PO SCH (08:13)
[2017-02-22] MEDS: ENOXAPARIN 30 MG/0.3 ML SYRINGE SUBQ SCH (08:14)
[2017-02-22] MEDS: D5.45NS W/20 MEQ KCL 1,000 ML IV SCH ×2 (08:20→19:00)
[2017-02-22] MEDS: FERROUS SULFATE 325 MG TABLET PO SCH (12:28)
[2017-02-22] MEDS: ATORVASTATIN 40 MG TABLET PO SCH (21:32)
[2017-02-22] MEDS: TERAZOSIN 5 MG CAPSULE PO SCH (21:34)
[2017-02-22] MEDS: OXYBUTYNIN 5MG TABLET PO SCH (21:34)
[2017-02-23] MEDS: oxyCOD/ACETAMIN 5 MG/325 MG TABLET PO PRN ×4 (04:49→15:58)
[2017-02-23] MEDS: D5.45NS W/20 MEQ KCL 1,000 ML IV SCH ×2 (04:49→14:05)
[2017-02-23] MEDS: SODIUM CHLORIDE FLUSH 0.9% 10 ML SYRINGE IVP SCH ×2 (07:31→14:05)
[2017-02-23] MEDS: ENOXAPARIN 30 MG/0.3 ML SYRINGE SUBQ SCH (08:15)
[2017-02-23] MEDS: MAGNESIUM OXIDE 400 MG TABLET PO SCH (08:15)
[2017-02-23] MEDS: LOSARTAN 50 MG TABLET PO SCH (08:15)
[2017-02-23] MEDS: cloNIDine 0.1 MG TABLET PO SCH (08:15)
[2017-02-23] MEDS: MULTIVITAMIN W/MINERALS TABLET PO SCH (08:15)
[2017-02-23] MEDS: METOPROLOL TARTRATE 25 MG TABLET PO SCH (08:16)
--- NOTE | 2017-02-23 11:47 | Discharge Plan ---
Discharge Plan Disposition: 03 SNF DC/Xfer Condition: Fair Prescriptions: oxyCODONE/ACET 5/325 [Percocet 5 mg/325 mg] 1 - 2 tab PO Q4HR PRN #30 tablet PRN Reason: Pain Diet: Regular Activity Restrictions: Wt Bearing as Tolerated Shower Restrictions: No Driving Restrictions: Yes Assistance Devices: Walker Weight Bearing: Full Weight No Smoking: If you smoke, Please STOP! Call for help. Follow-up with: PATRICIA TANG PA-C [Primary Care Provider] - Canelo Jett MD [Provider Admit Priv/Credential] -
[2017-02-23] MEDS: FERROUS SULFATE 325 MG TABLET PO SCH (12:18)
[2017-02-23 15:33] VITALS: BP 168/75
--- NOTE | 2017-04-06 13:43 | OPERATIVE REPORT ---
PREOPERATIVE DIAGNOSIS: Infected right knee, partial knee replacement, status post removal of implant s and placement of nonbiodegradable drug delivery device (PMMA plus antibiotics). POSTOPERATIVE DIAGNOSIS: Infected right knee, partial knee replacement, status post removal of implan ts and placement of nonbiodegradable drug delivery device (PMMA plus antibiotics). OPERATIVE PROCEDURE: Removal of nonbiodegradable drug delivery device (PMMA plus antibiotics) and rev ision to right total knee arthroplasty. SURGEON: Canelo Jett MD. ASSISTANTS: There were no assistants. ANESTHESIA: General endotracheal. BLOOD LOSS: 50 mL. TOURNIQUET: Right thigh at 275 mmHg x120 minutes without complications. DRAINS: None. COMPLICATIONS: None. MATERIAL TO LAB: None. SPONGE AND NEEDLE COUNTS: Correct. IMPLANTS 1. Brian NexGen PS, LPS-flex femoral component size G. 2. Stemmed tibial component size 6. 3. Taper stem plug. 4. Highly cross-linked polyethylene LPS-flex tibial insert, size GH x10 mm. 5. Persona all poly patella 35 x 9 mm. CONDITION AT END OF PROCEDURE: Stable. DISPOSITION: PACU, then Med/Surg. INDICATIONS: This is a 76-year-old male who had previously undergone a right partial knee replacement of the medial compartment. For several months subsequent to that surgery, he had intermittent period s of swelling and redness, which resolved with ice, elevation and rest. On his most recent admission approximately 8 weeks ago, he had persistent swelling and redness and aspiration of the right knee en ded up growing out Haemophilus parainfluenzae, which is a very fastidious organism. For that reason, he was taken to the operating room and a resection was carried out of the components of the partial knee replacement. An antibiotic cement spacer was placed in the left knee and he was started on a course of 6 weeks of IV antibiotics. The IV antibiotics were stopped after 6 weeks, then 2 weeks later, we aspirated his knee and sent syn ovasure fluid for analysis. Alpha-defensin and cultures came back negative. We then elected to procee d with a revision to a right total knee arthroplasty. PROCEDURE IN DETAIL: After consent and identification, the patient was brought to the operating room and placed in a supine position on the operating table. After induction of general endotracheal anest hesia and appropriate monitoring, a padded tourniquet was placed to the right proximal thigh. The pat ient was placed in the supine position for knee surgery. After appropriate prepping and draping of th e right lower extremity, the Goodman knee positioner was affixed to the right lower leg. The right l ower leg was exsanguinated with an Esmarch bandage and the tourniquet was inflated to 275 mmHg. With the knee in extended position, we exploited the previous median parapatellar approach incision t o the right knee. The patella was everted. We then carefully with an osteotome and curet removed the poly methyl methacrylate cement spacer from the knee to minimize the amount of bone loss. With the cement spacer removed, we used the curet to r emove fibrous tissue. We then irrigated the knee thoroughly with 6 L of sterile saline, the first 3 L containing chlorhexidine. We then proceeded with our Persona knee replacement by making a drill hole in the distal femur and pl acing an intramedullary guide for the distal femoral cutting block. A 10 mm distal femoral cut was th en performed. We removed the distal femoral cutting guide. We then placed a sizer block in the distal femur and the distal femoral cutting guide to make the anterior cut. After the anterior cut was performed, we plac ed the distal femoral guide to make the final anterior and posterior cuts, as well as the chamfer cut s. The guide was then removed. The extramedullary tibial guide was then placed over the anterior tibia. We aligned the distal portio n of the guide with the second ray. The proximal portion of the guide was centered over the tibial tu bercle. Pins were placed to hold the guide in appropriate position. We used the stylus to measure the low point on the medial side, which was where the previous implant had been placed. We determined th at we could make an appropriate proximal tibial cut without having to use a step cut or wedge inserts . The proximal tibial cut was then made. We then prepared the proximal tibia with the sizing tray. Using the punch and the drill, we placed a drill hole in the proximal tibia and then punched the stabilizing wedge cuts. We then placed a 10 mm spacer in the knee to gauge our flexion, extension gaps, which were noted to be stable and symmetrica l. With the patella in an everted position, we placed the stylus over the patella and measured at a d epth of 23 mm. We selected a 9.5 mm cut and used the cutting guide clamped to the patella to perform a patellar guide. We sized our patellar cut to 35 mm diameter. A 9 mm thick patellar trial was then p laced after drilling the 3 drill holes. We placed the tibial tray and the distal femur component and then placed the tray insert and ranged the knee through flexion and extension. Very light pressure wa s used to maintain the patellar reduction and noted all 3 components to be stable in both flexion and extension. Varus valgus stress did not show any significant laxity. Trials were removed. The knee wa s thoroughly irrigated. We opened the final implants and mixed 2 batches of Palacos cement with genta micin on the back table. With the cement in doughy consistency, it was applied to the back of the tib ial tray. We placed the size 6 tibial component with the cement and impacted it into place. Cement wa s carefully debrided. The femoral component was then impacted and cement was debrided. The polyethylene component was also placed and compressed. Cement was removed with a [place] elevator a nd tonsil forceps. With the knee in a reduced position and extended, we placed the foot on the Gaines s tand and allowed the cement to cure. We checked our flexion and extension and noted extension to just past 0 and flexion to 120 degrees. The knee was then thoroughly irrigated. We sequentially closed with a running interlocked #2 FiberWir e suture to the retinaculum, followed by interrupted 2-0 Vicryl subcuticular sutures followed by a ru nning 3-0 Monocryl suture. Steri-Strips and Mastisol were then applied. A sterile Aquacel dressing wa s then applied. We removed the impervious drape from the foot and lower extremity and wrapped the lower extremity wit h an Aleks bandage from the toes to the proximal thigh. All drapes were then removed. The patient was extubated and transferred to the recovery room after the tourniquet was deflated with out complication. The patient tolerated the procedure well and was stable in the recovery room. JOB #: [id number] EXT JOB #:[id number]
--- NOTE | 2017-04-27 14:34 | DISCHARGE SUMMARY ---
DATE OF ADMISSION: 02/21/2017 DATE OF DISCHARGE: 02/23/2017 CONDITION ON DISCHARGE: Stable. FINAL DIAGNOSES: 1. Status post right total knee arthroplasty using cement (stage II of a revision procedure for an in fected right total knee arthroplasty). 2. Aftercare following knee joint replacement surgery. 3. Acute encephalopathy. 4. Anemia. 5. Atrial fibrillation, chronic. 6. History of coronary artery disease. 7. Chronic anticoagulation. 8. Essential hypertension. PROCEDURES: 1. Revision right total knee arthroplasty with removal of non-biodegradable drug delivery device (PMM A plus antibiotic) on 02/21/2017. HISTORY OF PRESENT ILLNESS: This is a 76-year-old male with multiple medical problems who had previou sly undergone a partial right knee arthroplasty of his medial compartment several years prior to his index procedure which was approximately 9 weeks ago. At that time he had presented with a hot, red, s wollen right knee which was aspirated. The aspirate subsequently grew out Haemophilus parainfluenza ( a fastidious organism). As a result, he underwent explantation of his right knee components and place ment of a non-biodegradable drug delivery device (PMMA plus antibiotics). He had a PICC line placed a nd was started on course of IV antibiotics and subsequently was converted to p.o. antibiotics and com pleted a 6-week course. Two weeks were allowed to elapse after he completed his course of antibiotics. Followup labs showed t hat he had normalized his ESR, CRP, and CBC with differential. He was then deemed ready to undergo st age II of revision, to remove the PMMA/antibiotic implant and convert to a revision total knee arthro plasty. He underwent this procedure on 02/21/2017 without complication. Postoperative course was unremarkable with visits from physical therapy to mobilize the patient. The wound remained clean and dry. He was then discharged to home on postoperative day 3. LABORATORY DATA: Wound cultures and gram stain from the revision surgery procedure were negative. DISCHARGE MEDICATIONS: 1. Losartan 50 mg p.o. b.i.d. 2. Aspirin 81 mg p.o. daily. 3. Acetaminophen 325 mg, 2 tabs p.o. t.i.d. 4. Warfarin 4 mg p.o. Tuesday, Tuesday, Tuesday, Tuesday, and Tuesday; 2 mg p.o. q. Tuesday. 5. Oxybutynin 5 mg p.o. q. p.m. 6. Atorvastatin calcium 40 mg p.o. q. p.m. 7. Clonidine 0.1 mg p.o. daily. 8. Terazosin 5 mg tablet, 2 p.o. q. p.m. 9. Metoprolol 25 mg p.o. b.i.d. 10. Trazodone 100 mg p.o. q. p.m. p.r.n. 11. Magnesium oxide 400 mg p.o. daily. 12. Ferrous sulfate 324 mg p.o. daily. 13. Diphenhydramine 25 mg p.o. q. p.m. p.r.n. 14. Oxycodone 5 mg, 2 tablets p.o. q. 4 hours p.r.n. pain. 15. Multivitamin with minerals 1 tablet q. daily. 16. Enoxaparin 30 mg subcutaneous q. day. 17. Oxycodone/acetaminophen 5/325 mg 1 p.o. q. 4 hours p.r.n. pain, #30, no refills. DISCHARGE INSTRUCTIONS: 1. DIET: Regular. 2. ACTIVITY: Crutches for ambulation, weight bearing as tolerated to the right lower extremity. 3. The patient is discharged to home with home health physical therapy. Followup appointments: Orthopaedic Surgery, Dr. Jett, in 2 weeks for wound check. CODE STATUS: FULL CODE. JOB #: [id number] EXT JOB #:[id number]
== END 2017-02-23 15:58 | DRG 941 ==
LOC: MS 06:01
PROVIDERS: ADMIT Orthopaedic Surgery; ATTEND Orthopaedic Surgery
PROC: 0SPC08Z Removal of Spacer from Right Knee Joint, Open Approach (ICD-10-PCS; 2017-02-21)
PROC: 0SRC0J9 Replacement of Right Knee Joint with Synthetic Substitute, Cemented, Open Approach (ICD-10-PCS; principal; 2017-02-21 07:30)
DX: T84.53XD Infection and inflammatory reaction due to internal right knee prosthesis, subsequent encounter (principal); Y79.3 Surgical instruments, materials and orthopedic devices (including sutures) associated with adverse incidents; I11.0 Hypertensive heart disease with heart failure; I50.9 Heart failure, unspecified; I25.10 Atherosclerotic heart disease of native coronary artery without angina pectoris; I48.91 Unspecified atrial fibrillation; E78.5 Hyperlipidemia, unspecified; G47.30 Sleep apnea, unspecified; N40.0 Benign prostatic hyperplasia without lower urinary tract symptoms; N32.81 Overactive bladder; Z96.652 Presence of left artificial knee joint; Z79.82 Long term (current) use of aspirin; Z79.01 Long term (current) use of anticoagulants; Z79.899 Other long term (current) drug therapy; Z95.1 Presence of aortocoronary bypass graft; I25.2 Old myocardial infarction; Z86.73 Personal history of transient ischemic attack (TIA), and cerebral infarction without residual deficits
CPT/HCPCS: 81599; 87015; 87070; 87075; 87101; 87116; 87205; 87206

== ENCOUNTER 2017-02-25 09:40 | Outpatient (CLI) | payer MEDICARE, OTHER | END 2017-02-25 09:41 | disposition home or self-care (01) | DX: D64.9 Anemia, unspecified (principal) ==

== ENCOUNTER 2017-03-03 08:00 | Outpatient (CLI) | payer MEDICARE, OTHER ==
[2017-03-03 13:00] LABS: BASOPHILS % (AUTO) 0.9 %; EOSINOPHILS # (AUTO) 0.2 10^3/uL (0.0-0.7); EOSINOPHILS % (AUTO) 3.5 %; HCT - HEMATOCRIT 20.5 % (42.0-52.0); LYMPHOCYTES # (AUTO) 0.6 10^3/uL (1.5-3.5); LYMPHOCYTES % (AUTO) 11.9 %; MEAN CORPUSCULAR HEMOGLOBIN 29.9 pg (27.0-31.0); MEAN CORPUSCULAR HGB CONC 33.1 g/dL (32.0-36.0); MEAN CORPUSCULAR VOLUME 90.4 fL (80.0-94.0); MEAN PLATELET VOLUME 8.2 fL (7.4-11.4); MONOCYTES # (AUTO) 0.3 10^3/uL (0.0-1.0); MONOCYTES % (AUTO) 5.7 %; NEUTROPHILS # (AUTO) 3.8 10^3/uL (1.5-6.6); RED BLOOD COUNT 2.26 10^6/uL (4.70-6.10); RED CELL DISTRIBUTION WIDTH 15.5 % (12.0-15.0); UNCORRECTED WHITE BLOOD COUNT 4.8 x10^3/uL; WHITE BLOOD COUNT 4.8 x10^3/uL (4.8-10.8)
[2017-03-03 13:10] LABS: HGB - HEMOGLOBIN 6.8 g/dL (14.0-18.0)
== END 2017-03-03 08:01 | disposition home or self-care (01) ==
LOC: LAB.R 08:00
PROVIDERS: ATTEND Internal Medicine
DX: D50.9 Iron deficiency anemia, unspecified (principal); E87.6 Hypokalemia
CPT/HCPCS: 85025

== ENCOUNTER 2017-03-07 11:15 | Outpatient (CLI) | payer MEDICARE, OTHER | END 2017-03-07 11:16 | disposition home or self-care (01) | DX: D64.9 Anemia, unspecified (principal); R94.4 Abnormal results of kidney function studies ==

== ENCOUNTER 2017-04-01 11:14 | Outpatient (CLI) | payer MEDICARE, OTHER | END 2017-04-01 11:15 | disposition home or self-care (01) | LOC: LAB 11:14 | PROVIDERS: ATTEND Physician Assistant | DX: I48.91 Unspecified atrial fibrillation (principal) | CPT/HCPCS: 85610 ==

== ENCOUNTER 2017-04-04 13:00 | Outpatient (CLI) | payer MEDICARE, OTHER ==
[2017-04-04 13:35] LABS: CALCIUM 9.2 mg/dL (8.5-10.3); CREATININE 1.3 mg/dL (0.6-1.2); POTASSIUM 3.5 mmol/L (3.5-5.0)
== END 2017-04-04 13:01 | disposition home or self-care (01) ==
LOC: LAB 13:00
PROVIDERS: ATTEND Internal Medicine Cardiovascular Disease
DX: I48.91 Unspecified atrial fibrillation (principal); I10 Essential (primary) hypertension
CPT/HCPCS: 36415; 80048; 85610

== ENCOUNTER 2017-04-13 13:17 | Outpatient (CLI) | payer MEDICARE, OTHER ==
[2017-04-13 14:21] LABS: CALCIUM 9.4 mg/dL (8.5-10.3); CREATININE 1.4 mg/dL (0.6-1.2)
== END 2017-04-13 13:18 | disposition home or self-care (01) ==
LOC: LAB 13:17
PROVIDERS: ATTEND Internal Medicine Cardiovascular Disease
DX: I10 Essential (primary) hypertension (principal)
CPT/HCPCS: 36415; 80048

== ENCOUNTER 2017-05-16 14:18 | Outpatient (CLI) | payer MEDICARE, OTHER | END 2017-05-16 14:19 | disposition home or self-care (01) | LOC: LAB 14:18 | PROVIDERS: ATTEND Physician Assistant | DX: I48.91 Unspecified atrial fibrillation (principal) | CPT/HCPCS: 85610 ==

== ENCOUNTER 2017-06-13 11:22 | Outpatient (CLI) | payer MEDICARE, OTHER | END 2017-06-13 11:23 | disposition home or self-care (01) | LOC: LAB 11:22 | PROVIDERS: ATTEND Physician Assistant | DX: I48.91 Unspecified atrial fibrillation (principal) | CPT/HCPCS: 85610 ==

== ENCOUNTER 2017-07-11 14:11 | Outpatient (CLI) | payer MEDICARE, OTHER | END 2017-07-11 14:12 | disposition home or self-care (01) | LOC: LAB 14:11 | PROVIDERS: ATTEND Physician Assistant | DX: I48.91 Unspecified atrial fibrillation (principal) | CPT/HCPCS: 85610 ==

== ENCOUNTER 2017-08-09 11:40 | Outpatient (CLI) | payer MEDICARE, OTHER ==
[2017-08-09 12:58] LABS: CALCIUM 9.1 mg/dL (8.5-10.3); CREATININE 1.4 mg/dL (0.6-1.2); POTASSIUM 3.9 mmol/L (3.5-5.0)
== END 2017-08-09 11:41 | disposition home or self-care (01) ==
LOC: LAB 11:40
PROVIDERS: ATTEND Physician Assistant
DX: Z95.1 Presence of aortocoronary bypass graft (principal); I48.0 Paroxysmal atrial fibrillation; I10 Essential (primary) hypertension; I73.9 Peripheral vascular disease, unspecified; E78.00 Pure hypercholesterolemia, unspecified
CPT/HCPCS: 36415; 80048; 85610

== ENCOUNTER 2017-09-06 13:32 | Outpatient (CLI) | payer MEDICARE, OTHER | END 2017-09-06 13:33 | disposition home or self-care (01) | LOC: LAB 13:32 | PROVIDERS: ATTEND Physician Assistant | DX: I48.91 Unspecified atrial fibrillation (principal) | CPT/HCPCS: 85610 ==

== ENCOUNTER 2017-09-20 13:46 | Outpatient (CLI) | payer MEDICARE, OTHER | END 2017-09-20 13:47 | disposition home or self-care (01) | LOC: LAB 13:46 | PROVIDERS: ATTEND Physician Assistant | DX: I48.91 Unspecified atrial fibrillation (principal) | CPT/HCPCS: 85610 ==

== ENCOUNTER 2017-10-19 13:08 | Outpatient (CLI) | payer MEDICARE, OTHER | END 2017-10-19 13:09 | disposition home or self-care (01) | LOC: LAB 13:08 | PROVIDERS: ATTEND Physician Assistant | DX: I48.91 Unspecified atrial fibrillation (principal) | CPT/HCPCS: 85610 ==

== ENCOUNTER 2017-11-22 13:27 | Outpatient (CLI) | payer MEDICARE, OTHER | END 2017-11-22 13:28 | disposition home or self-care (01) | LOC: LAB 13:27 | PROVIDERS: ATTEND Physician Assistant | DX: I48.91 Unspecified atrial fibrillation (principal) | CPT/HCPCS: 85610 ==

== ENCOUNTER 2018-01-03 10:45 | Outpatient (CLI) | payer MEDICARE, OTHER | END 2018-01-03 10:46 | disposition home or self-care (01) | LOC: LAB 10:45 | PROVIDERS: ATTEND Physician Assistant | DX: I48.91 Unspecified atrial fibrillation (principal) | CPT/HCPCS: 85610 ==

== ENCOUNTER 2018-01-17 10:03 | Outpatient (CLI) | payer MEDICARE, OTHER | END 2018-01-17 10:04 | disposition home or self-care (01) | LOC: LAB 10:03 | PROVIDERS: ATTEND Physician Assistant | DX: I48.91 Unspecified atrial fibrillation (principal) | CPT/HCPCS: 85610 ==

== ENCOUNTER 2018-01-31 15:16 | Outpatient (CLI) | payer MEDICARE, OTHER | END 2018-01-31 15:17 | disposition home or self-care (01) | LOC: LAB 15:16 | PROVIDERS: ATTEND Physician Assistant | DX: I48.91 Unspecified atrial fibrillation (principal) | CPT/HCPCS: 85610 ==

== ENCOUNTER 2018-02-15 13:40 | Outpatient (CLI) | payer MEDICARE, OTHER | END 2018-02-15 13:41 | disposition home or self-care (01) | LOC: LAB 13:40 | PROVIDERS: ATTEND Physician Assistant | DX: I48.91 Unspecified atrial fibrillation (principal) | CPT/HCPCS: 85610 ==

== ENCOUNTER 2018-03-01 14:03 | Outpatient (CLI) | payer MEDICARE, OTHER | END 2018-03-01 14:04 | disposition home or self-care (01) | LOC: LAB 14:03 | PROVIDERS: ATTEND Physician Assistant | DX: I48.91 Unspecified atrial fibrillation (principal) | CPT/HCPCS: 85610 ==

== ENCOUNTER 2018-03-15 13:56 | Outpatient (CLI) | payer MEDICARE, OTHER | END 2018-03-15 13:57 | disposition home or self-care (01) | LOC: LAB 13:56 | PROVIDERS: ATTEND Physician Assistant | DX: I48.91 Unspecified atrial fibrillation (principal) | CPT/HCPCS: 85610 ==

== ENCOUNTER 2018-03-30 13:53 | Outpatient (CLI) | payer MEDICARE, OTHER | END 2018-03-30 13:54 | disposition home or self-care (01) | LOC: LAB 13:53 | PROVIDERS: ATTEND Physician Assistant | DX: I48.91 Unspecified atrial fibrillation (principal) | CPT/HCPCS: 85610 ==

== ENCOUNTER 2018-04-22 14:03 | Outpatient (CLI) | payer MEDICARE, OTHER | END 2018-04-22 14:04 | disposition short-term general hospital (02) | LOC: EMS 14:03 | PROVIDERS: ATTEND Surgery | DX: R06.02 Shortness of breath (principal); R11.0 Nausea; R42 Dizziness and giddiness | CPT/HCPCS: A0425; A0427 ==

== ENCOUNTER 2018-05-05 10:51 | Outpatient (CLI) | payer MEDICARE, OTHER | END 2018-05-05 10:52 | disposition home or self-care (01) | LOC: LAB 10:51 | PROVIDERS: ATTEND Physician Assistant | DX: I48.91 Unspecified atrial fibrillation (principal) | CPT/HCPCS: 85610 ==

== ENCOUNTER 2018-05-09 10:47 | Outpatient (CLI) | payer MEDICARE, OTHER | END 2018-05-09 10:48 | disposition home or self-care (01) | LOC: LAB 10:47 | PROVIDERS: ATTEND Physician Assistant | DX: I48.91 Unspecified atrial fibrillation (principal) | CPT/HCPCS: 85610 ==

== ENCOUNTER 2018-05-19 12:41 | Outpatient (CLI) | payer MEDICARE, OTHER | END 2018-05-19 12:42 | disposition home or self-care (01) | LOC: LAB 12:41 | PROVIDERS: ATTEND Physician Assistant | DX: I48.91 Unspecified atrial fibrillation (principal) | CPT/HCPCS: 85610 ==

== ENCOUNTER 2018-06-08 13:51 | Outpatient (CLI) | payer MEDICARE, OTHER | END 2018-06-08 13:52 | disposition home or self-care (01) | LOC: LAB 13:51 | PROVIDERS: ATTEND Physician Assistant | DX: I48.91 Unspecified atrial fibrillation (principal) | CPT/HCPCS: 85610 ==

== ENCOUNTER 2018-06-15 13:24 | Outpatient (CLI) | payer MEDICARE, OTHER | END 2018-06-15 13:25 | disposition home or self-care (01) | LOC: LAB 13:24 | PROVIDERS: ATTEND Physician Assistant | DX: I48.91 Unspecified atrial fibrillation (principal) | CPT/HCPCS: 85610 ==

== ENCOUNTER 2018-07-03 13:17 | Outpatient (CLI) | payer MEDICARE, OTHER ==
[2018-07-03 14:01] LABS: CREATININE,URINE 83.6 mg/dL; PROTEIN/CREATININE RATIO,URINE 0.1 (<=0.2)
== END 2018-07-03 13:18 | disposition home or self-care (01) ==
LOC: LAB 13:17
PROVIDERS: ATTEND Internal Medicine Nephrology
DX: R80.9 Proteinuria, unspecified (principal)
CPT/HCPCS: 82570; 84156

== ENCOUNTER 2018-07-11 14:13 | Outpatient (CLI) | payer MEDICARE, OTHER | END 2018-07-11 14:14 | disposition home or self-care (01) | LOC: LAB 14:13 | PROVIDERS: ATTEND Physician Assistant | DX: I48.91 Unspecified atrial fibrillation (principal) | CPT/HCPCS: 85610 ==

== ENCOUNTER 2018-07-19 13:53 | Outpatient (CLI) | payer MEDICARE, OTHER ==
[2018-07-19 14:12] LABS: BASOPHILS % (AUTO) 0.8 %; EOSINOPHILS # (AUTO) 0.1 10^3/uL (0.0-0.7); EOSINOPHILS % (AUTO) 1.9 %; HGB - HEMOGLOBIN 11.5 g/dL (14.0-18.0); LYMPHOCYTES # (AUTO) 0.7 10^3/uL (1.5-3.5); LYMPHOCYTES % (AUTO) 14.8 %; MEAN CORPUSCULAR HEMOGLOBIN 31.2 pg (27.0-31.0); MEAN CORPUSCULAR HGB CONC 33.9 g/dL (32.0-36.0); MEAN CORPUSCULAR VOLUME 91.9 fL (80.0-94.0); MEAN PLATELET VOLUME 8.1 fL (7.4-11.4); MONOCYTES # (AUTO) 0.3 10^3/uL (0.0-1.0); MONOCYTES % (AUTO) 6.6 %; NEUTROPHILS # (AUTO) 3.5 10^3/uL (1.5-6.6); NEUTROPHILS % (AUTO) 75.9 %; PLT - PLATELET COUNT 135 10^3/uL (130-450); RED BLOOD COUNT 3.69 10^6/uL (4.70-6.10); RED CELL DISTRIBUTION WIDTH 13.9 % (12.0-15.0); WHITE BLOOD COUNT 4.6 x10^3/uL (4.8-10.8)
[2018-07-19 14:18] LABS: CALCIUM 9.2 mg/dL (8.5-10.3); CREATININE 1.3 mg/dL (0.6-1.2)
== END 2018-07-19 13:54 | disposition home or self-care (01) ==
LOC: LAB 13:53
PROVIDERS: ATTEND Physician Assistant
DX: N18.3 Chronic kidney disease, stage 3 (moderate) (principal)
CPT/HCPCS: 36415; 80048; 85025

== ENCOUNTER 2018-08-23 13:55 | Outpatient (CLI) | payer MEDICARE, OTHER | END 2018-08-23 13:56 | disposition home or self-care (01) | LOC: LAB 13:55 | PROVIDERS: ATTEND Physician Assistant | DX: I48.91 Unspecified atrial fibrillation (principal) | CPT/HCPCS: 85610 ==

== ENCOUNTER 2018-09-20 13:54 | Outpatient (CLI) | payer MEDICARE, OTHER | END 2018-09-20 13:55 | disposition home or self-care (01) | LOC: LAB 13:54 | PROVIDERS: ATTEND Physician Assistant | DX: I48.91 Unspecified atrial fibrillation (principal) | CPT/HCPCS: 85610 ==

== ENCOUNTER 2018-10-23 11:37 | Outpatient (CLI) | payer MEDICARE, OTHER ==
[2018-10-23 12:08] LABS: ALBUMIN 4.1 g/dL (3.2-5.5); ALBUMIN/GLOBULIN RATIO 1.5 (1.0-2.2); BILIRUBIN,TOTAL 0.8 mg/dL (0.2-1.0); CALCIUM 9.1 mg/dL (8.5-10.3); CREATININE 1.4 mg/dL (0.6-1.2); TOTAL PROTEIN 6.9 g/dL (6.7-8.2)
[2018-10-23 12:11] LABS: BASOPHILS % (AUTO) 0.7 %; EOSINOPHILS # (AUTO) 0.1 10^3/uL (0.0-0.7); EOSINOPHILS % (AUTO) 2.1 %; HGB - HEMOGLOBIN 12.1 g/dL (14.0-18.0); LYMPHOCYTES # (AUTO) 0.7 10^3/uL (1.5-3.5); MEAN CORPUSCULAR HEMOGLOBIN 31.6 pg (27.0-31.0); MEAN CORPUSCULAR HGB CONC 34.2 g/dL (32.0-36.0); MEAN CORPUSCULAR VOLUME 92.6 fL (80.0-94.0); MEAN PLATELET VOLUME 8.7 fL (7.4-11.4); MONOCYTES # (AUTO) 0.4 10^3/uL (0.0-1.0); MONOCYTES % (AUTO) 7.3 %; NEUTROPHILS # (AUTO) 3.7 10^3/uL (1.5-6.6); NEUTROPHILS % (AUTO) 74.9 %; PLT - PLATELET COUNT 142 10^3/uL (130-450); RED BLOOD COUNT 3.82 10^6/uL (4.70-6.10); RED CELL DISTRIBUTION WIDTH 13.9 % (12.0-15.0); WHITE BLOOD COUNT 4.9 x10^3/uL (4.8-10.8)
== END 2018-10-23 11:38 | disposition home or self-care (01) ==
LOC: LAB 11:37
PROVIDERS: ATTEND Physician Assistant
DX: I48.91 Unspecified atrial fibrillation (principal); I10 Essential (primary) hypertension; E78.5 Hyperlipidemia, unspecified; D64.9 Anemia, unspecified
CPT/HCPCS: 36415; 80053; 85025; 85610

== ENCOUNTER 2018-11-09 13:32 | Outpatient (CLI) | payer MEDICARE, OTHER ==
[2018-11-09 14:07] LABS: BASOPHILS % (AUTO) 0.4 %; EOSINOPHILS # (AUTO) 0.1 10^3/uL (0.0-0.7); EOSINOPHILS % (AUTO) 2.3 %; LYMPHOCYTES # (AUTO) 0.7 10^3/uL (1.5-3.5); LYMPHOCYTES % (AUTO) 14.2 %; MEAN CORPUSCULAR HEMOGLOBIN 31.7 pg (27.0-31.0); MEAN CORPUSCULAR HGB CONC 34.2 g/dL (32.0-36.0); MEAN CORPUSCULAR VOLUME 92.6 fL (80.0-94.0); MEAN PLATELET VOLUME 8.2 fL (7.4-11.4); MONOCYTES # (AUTO) 0.3 10^3/uL (0.0-1.0); NEUTROPHILS # (AUTO) 3.8 10^3/uL (1.5-6.6); NEUTROPHILS % (AUTO) 77.1 %; PLT - PLATELET COUNT 141 10^3/uL (130-450); RED BLOOD COUNT 3.79 10^6/uL (4.70-6.10); RED CELL DISTRIBUTION WIDTH 13.5 % (12.0-15.0)
[2018-11-09 14:26] LABS: ALBUMIN 4.1 g/dL (3.2-5.5); ALBUMIN/GLOBULIN RATIO 1.6 (1.0-2.2); BILIRUBIN,TOTAL 0.7 mg/dL (0.2-1.0); CALCIUM 9.4 mg/dL (8.5-10.3); CREATININE 1.4 mg/dL (0.6-1.2); TOTAL PROTEIN 6.7 g/dL (6.7-8.2)
== END 2018-11-09 13:33 | disposition home or self-care (01) ==
LOC: LAB 13:32
PROVIDERS: ATTEND Physician Assistant
DX: R22.42 Localized swelling, mass and lump, left lower limb (principal); R60.9 Edema, unspecified; I50.9 Heart failure, unspecified; L03.90 Cellulitis, unspecified
CPT/HCPCS: 36415; 80053; 83880; 85025

== ENCOUNTER 2018-11-23 11:52 | Outpatient (CLI) | payer MEDICARE, OTHER | END 2018-11-23 11:53 | disposition home or self-care (01) | LOC: LAB 11:52 | PROVIDERS: ATTEND Physician Assistant | DX: I48.91 Unspecified atrial fibrillation (principal) | CPT/HCPCS: 85610 ==

== ENCOUNTER 2018-12-07 11:13 | Outpatient (CLI) | payer MEDICARE, OTHER | END 2018-12-07 11:14 | disposition home or self-care (01) | LOC: LAB 11:13 | PROVIDERS: ATTEND Physician Assistant | DX: I48.91 Unspecified atrial fibrillation (principal) | CPT/HCPCS: 85610 ==

== ENCOUNTER 2018-12-21 13:01 | Outpatient (CLI) | payer MEDICARE, OTHER | END 2018-12-21 13:02 | disposition home or self-care (01) | LOC: LAB 13:01 | PROVIDERS: ATTEND Physician Assistant | DX: I48.91 Unspecified atrial fibrillation (principal) | CPT/HCPCS: 85610 ==

== ENCOUNTER 2019-03-01 11:03 | Outpatient (CLI) | payer MEDICARE, OTHER | END 2019-03-01 11:04 | disposition home or self-care (01) | LOC: LAB 11:03 | PROVIDERS: ATTEND Physician Assistant | DX: I48.91 Unspecified atrial fibrillation (principal) | CPT/HCPCS: 85610 ==

== ENCOUNTER 2019-03-29 13:19 | Outpatient (CLI) | payer MEDICARE, OTHER | END 2019-03-29 13:20 | disposition home or self-care (01) | LOC: LAB 13:19 | PROVIDERS: ATTEND Physician Assistant | DX: I48.91 Unspecified atrial fibrillation (principal) | CPT/HCPCS: 85610 ==

== ENCOUNTER 2019-05-01 10:55 | Outpatient (CLI) | payer MEDICARE, OTHER | END 2019-05-01 10:56 | disposition home or self-care (01) | LOC: LAB 10:55 | PROVIDERS: ATTEND Physician Assistant | DX: I48.91 Unspecified atrial fibrillation (principal) | CPT/HCPCS: 85610 ==

== ENCOUNTER 2019-05-30 14:06 | Outpatient (CLI) | payer MEDICARE, OTHER | END 2019-05-30 14:07 | disposition home or self-care (01) | LOC: LAB 14:06 | PROVIDERS: ATTEND Physician Assistant | DX: I48.91 Unspecified atrial fibrillation (principal) | CPT/HCPCS: 85610 ==

== ENCOUNTER 2019-06-28 13:40 | Outpatient (CLI) | payer MEDICARE, OTHER ==
[2019-06-28 14:09] LABS: HGB - HEMOGLOBIN 11.5 g/dL (14.0-18.0); MEAN CORPUSCULAR HEMOGLOBIN 31.4 pg (27.0-31.0); MEAN CORPUSCULAR HGB CONC 33.1 g/dL (32.0-36.0); MEAN CORPUSCULAR VOLUME 94.8 fL (80.0-94.0); MEAN PLATELET VOLUME 10.1 fL (7.4-11.4); RED BLOOD COUNT 3.66 10^6/uL (4.70-6.10); RED CELL DISTRIBUTION WIDTH 12.7 % (12.0-15.0); WHITE BLOOD COUNT 5.1 x10^3/uL (4.8-10.8)
[2019-06-28 14:18] LABS: CALCIUM 9.5 mg/dL (8.5-10.3); CREATININE 1.4 mg/dL (0.6-1.2)
[2019-06-28 14:38] LABS: CREATININE,URINE 76.4 mg/dL; PROTEIN/CREATININE RATIO,URINE 0.1 (<=0.2)
== END 2019-06-28 13:41 | disposition home or self-care (01) ==
LOC: LAB 13:40
PROVIDERS: ATTEND Internal Medicine Nephrology
DX: I48.91 Unspecified atrial fibrillation (principal); N05.9 Unspecified nephritic syndrome with unspecified morphologic changes; D70.9 Neutropenia, unspecified; D63.1 Anemia in chronic kidney disease; R80.9 Proteinuria, unspecified
CPT/HCPCS: 36415; 80048; 82570; 84156; 85027; 85610

== ENCOUNTER 2019-07-31 13:33 | Outpatient (CLI) | payer MEDICARE, OTHER | END 2019-07-31 13:34 | disposition home or self-care (01) | LOC: LAB 13:33 | PROVIDERS: ATTEND Physician Assistant | DX: I48.91 Unspecified atrial fibrillation (principal) | CPT/HCPCS: 85610 ==

== ENCOUNTER 2019-08-28 13:27 | Outpatient (CLI) | payer MEDICARE, OTHER | END 2019-08-28 13:28 | disposition home or self-care (01) | LOC: LAB 13:27 | PROVIDERS: ATTEND Physician Assistant | DX: I48.91 Unspecified atrial fibrillation (principal) | CPT/HCPCS: 85610 ==

== ENCOUNTER 2019-09-28 13:28 | Outpatient (CLI) | payer MEDICARE, OTHER | END 2019-09-28 13:29 | disposition home or self-care (01) | LOC: LAB 13:28 | PROVIDERS: ATTEND Physician Assistant | DX: I48.91 Unspecified atrial fibrillation (principal) | CPT/HCPCS: 85610 ==

== ENCOUNTER 2019-10-26 14:17 | Outpatient (CLI) | payer MEDICARE, OTHER | END 2019-10-26 14:18 | disposition home or self-care (01) | LOC: LAB 14:17 | PROVIDERS: ATTEND Physician Assistant | DX: I48.91 Unspecified atrial fibrillation (principal) | CPT/HCPCS: 85610 ==

== ENCOUNTER 2019-11-23 13:07 | Outpatient (CLI) | payer MEDICARE, OTHER | END 2019-11-23 13:08 | disposition home or self-care (01) | LOC: LAB 13:07 | PROVIDERS: ATTEND Physician Assistant | DX: I48.91 Unspecified atrial fibrillation (principal) | CPT/HCPCS: 85610 ==

== ENCOUNTER 2019-12-21 13:50 | Outpatient (CLI) | payer MEDICARE, OTHER | END 2019-12-21 13:51 | disposition home or self-care (01) | LOC: LAB 13:50 | PROVIDERS: ATTEND Physician Assistant | DX: I48.91 Unspecified atrial fibrillation (principal) | CPT/HCPCS: 85610 ==

== ENCOUNTER 2020-06-18 00:05 | Outpatient (CLI) | payer MEDICARE, OTHER | END 2020-06-18 00:06 | disposition critical access hospital (66) | LOC: EMS 00:05 | PROVIDERS: ATTEND Surgery | DX: R07.9 Chest pain, unspecified (principal) | CPT/HCPCS: A0425; A0427 ==

== ENCOUNTER 2020-06-18 00:23 | Emergency (ER) | payer MEDICARE, OTHER ==
--- NOTE | 2020-06-18 00:27 | ED Physician Documentation ---
PD HPI CHEST PAIN - Stated complaint Stated Complaint: CHEST PX - History obtained from History obtained from: Patient, EMS - History of Present Illness Timing - onset: How many days ago (10) Timing - onset during: Rest Timing - duration: Days Timing - details: Abrupt onset, Intermittant Pain level max: 5 Pain level now: 2 Quality: Tightness Location: Substernal Radiation: Other (does not radiate) Improved by: Rest, Nitro Worsened by: Exertion Associated symptoms: Shortness of air. No: Diaphoresis, Nausea, Vomiting, Feeling faint / dizzy, General Weakness, Palpitations Recently seen: Not recently seen - Additional information Additional information: c/o 10 days of episodic midline chest tightness with shortness of breath. Episodes have been associated with exertion and relieved with rest, typically 5 minutes of rest. However, over these past 10 days, he has had increasingly frequent episodes with less exertional provocation and requiring longer periods of rest before resolving. This evening at approximately 7 PM, he had an episode while at rest and he took a SLNTG which resulted in resolution. However, when getting in bed, he had recurrence of the pain; he took 4 baby aspirin, another SLNTG, and called 911. By the time the medics arrived, his pain had gone from 5 (out of ten) to zero (resolved). As patient is arriving in ED, he says his pain is now recurring. Patient had CABG 6 years ago; of note, he had not had prior cardiac history, and his EKG had minimal findings at that time along with an initial (ED) normal troponin. Review of Systems Constitutional: reports: Reviewed and negative Eyes: reports: Reviewed and negative Ears: reports: Reviewed and negative Nose: reports: Reviewed and negative Throat: reports: Reviewed and negative Cardiac: reports: Chest pain / pressure. denies: Palpitations, Pedal edema, Calf pain Respiratory: reports: Dyspnea. denies: Cough GI: reports: Reviewed and negative : denies: Dysuria, Frequency Skin: reports: Reviewed and negative Musculoskeletal: reports: Reviewed and negative Neurologic: reports: Reviewed and negative PD PAST MEDICAL HISTORY - Past Medical History Past Medical History: Yes Cardiovascular: Hypertension, High cholesterol, Coronary artery disease - Past Surgical History Ortho: Knee replacement (bilateral) Cardiovascular: CABG - Present Medications Home Medications: Ambulatory Orders Medication Instructions Recorded Confirmed Atorvastatin Calcium 40 mg PO QPM 01/04/17 03/09/17 Magnesium Oxide 400 mg PO DAILY 01/04/17 03/09/17 Metoprolol Tartrate 12.5 mg PO BID 01/04/17 03/09/17 Oxybutynin [Ditropan] 10 mg PO QPM PRN 01/04/17 03/09/17 Terazosin [Hytrin] 10 mg PO BID 01/04/17 03/09/17 Trazodone HCl 150 mg PO QPM PRN 01/04/17 03/09/17 cloNIDine [Catapres] 0.05 mg PO BID 01/04/17 03/09/17 Warfarin Sodium [Coumadin] 2 mg ORAL DAILY 03/09/17 03/09/17 Warfarin Sodium [Coumadin] 4 mg ORAL DAILYWM 03/09/17 03/09/17 Aspirin Chewable [St Tomas 81 mg PO DAILY 06/18/20 06/18/20 Aspirin] Ferrous Gluconate [Iron] 65 mg PO DAILY 06/18/20 06/18/20 Nad, Reduced, Disodium 500 mg BID 06/18/20 06/18/20 [Nicotinamide Adenine] Omeprazole 20 mg PO 06/18/20 Valsartan 160 mg PO BID 06/18/20 06/18/20 amLODIPine [Norvasc] 5 mg PO BID 06/18/20 06/18/20 - Allergies Allergies/Adverse Reactions: Allergies Allergy/AdvReac Type Severity Reaction Status Date / Time MYNOR Inhibitors Allergy Unknown Unknown Verified 02/21/17 06:38 atenolol Allergy Unknown Unknown Verified 02/21/17 06:38 colchicine Allergy Unknown Unknown Verified 02/21/17 06:38 hydrocodone bitartrate * Allergy Unknown Unknown Verified 02/21/17 06:38 [From Vicodin] indomethacin Allergy Unknown Unknown Verified 02/21/17 06:38 NSAIDS (Non-Steroidal Allergy Unknown Unknown Verified 02/21/17 06:38 Anti-Inflamma terbinafine HCl * Allergy Unknown Unknown Verified 02/21/17 06:38 [From Lamisil] levofloxacin [From Levaquin] Allergy Unknown Verified 06/18/20 00:44 - Living Situation Living Arrangement: reports: At home - Social History Does the pt smoke?: No PD ED PE NORMAL - Vitals Vital signs reviewed: Yes - General General: Alert and oriented X 3, No acute distress, Well developed/nourished - HEENT HEENT: Moist mucous membranes - Neck Neck: Supple, no meningeal sign - Cardiac Cardiac: RRR, No murmur, No gallop, No rub - Respiratory Respiratory: No respiratory distress, Clear bilaterally - Abdomen Abdomen: Soft, Non tender - Back Back: No CVA TTP - Derm Derm: Normal color, Warm and dry - Extremities Extremities: No edema, Other (RLE discoloration () - Neuro Neuro: Alert and oriented X 3 Eye Opening: Spontaneous Motor: Obeys Commands Verbal: Oriented GCS Score: 15 Results - Vitals Vitals: Vital Signs - 24 hr 06/18/20 06/18/20 06/18/20 00:23 00:34 01:00 Temperature 37 C Heart Rate 98 76 Respiratory 18 19 Rate Blood Pressure 144/71 H 126/72 Blood Pressure 136/76 H [Left] Blood Pressure 137/67 H [Right] O2 Saturation 97 97 06/18/20 06/18/20 06/18/20 03:00 03:30 03:36 Temperature 36.9 C Heart Rate 78 82 130 H Respiratory 19 16 13 Rate Blood Pressure 135/79 H 142/82 H Blood Pressure [Left] Blood Pressure [Right] O2 Saturation 99 99 99 06/18/20 03:44 Temperature Heart Rate 76 Respiratory 13 Rate Blood Pressure 112/79 Blood Pressure [Left] Blood Pressure [Right] O2 Saturation 99 Oxygen O2 Source Room air - EKG (time done) No standard instances Rate: Rate (enter#) (90) Rhythm: NSR [place]: LAD Intervals: Normal NC QRS: Normal Ischemia: Q waves (III, aVF, V2, V3) Compare to prior EKG: Unchanged from prior EKG (no significant change compared to 01/27/17 (including Q waves in same leads)) - Labs Labs: Laboratory Tests 06/18/20 06/18/20 06/18/20 00:29 00:29 00:29 WBC 5.1 RBC 3.68 L Hgb 11.8 L Hct 35.2 L MCV 95.7 H MCH 32.1 H MCHC 33.5 RDW 13.0 Plt Count 135 MPV 9.2 Neut # (Auto) 3.6 Lymph # (Auto) 1.0 L [place] # (Auto) 0.3 Eos # (Auto) 0.1 Baso # (Auto) 0.0 Absolute Nucleated RBC 0.00 Nucleated RBC % 0.0 PT 32.0 H INR 3.0 H APTT 38.5 H Sodium 139 Potassium 3.5 Chloride 106 Carbon Dioxide 23 Anion Gap 10.0 BUN 32 H Creatinine 1.4 H Estimated GFR (MDRD) 49 L Glucose 144 H Calcium 9.6 Total Bilirubin 0.7 AST 27 ALT 20 Alkaline Phosphatase 72 Troponin I High Sens Total Protein 7.1 Albumin 4.4 Globulin 2.7 Albumin/Globulin Ratio 1.6 Lipase 56 H 06/18/20 00:29 WBC RBC Hgb Hct MCV MCH MCHC RDW Plt Count MPV Neut # (Auto) Lymph # (Auto) [place] # (Auto) Eos # (Auto) Baso # (Auto) Absolute Nucleated RBC Nucleated RBC % PT INR APTT Sodium Potassium Chloride Carbon Dioxide Anion Gap BUN Creatinine Estimated GFR (MDRD) Glucose Calcium Total Bilirubin AST ALT Alkaline Phosphatase Troponin I High Sens 21.0 H* Total Protein Albumin Globulin Albumin/Globulin Ratio Lipase - Rads (name of study) chest xray Radiology: Prelim report reviewed, See rad report PD MEDICAL DECISION MAKING - ED course Complexity details: reviewed old records, reviewed results, re-evaluated keaton orr, considered differential, d/w patient ED course: minimally elevated high sensitivity troponin and no acute changes on EKG; however, he has a h/o CABG and his HPI is strongly s/o unstable angina and thus I recommended transfer to higher level of care. 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 Patient agreeable to consider [facility], and I d/w Dr. Miguel who accepts transfer to [facility]. Patient was having episodic chest pressure with minimal provocation during ED stay (such as standing at bedside to use the urinal). Departure - Departure Disposition: 02 Transfer Acute Care Hosp Clinical Impression: Unstable angina Condition: Stable Discharge Date/Time: 06/18/20 04:09
[2020-06-18 00:38] LABS: BASOPHILS % (AUTO) 0.4 %; EOSINOPHILS # (AUTO) 0.1 10^3/uL (0.0-0.7); EOSINOPHILS % (AUTO) 2.4 %; HGB - HEMOGLOBIN 11.8 g/dL (14.0-18.0); LYMPHOCYTES % (AUTO) 18.8 %; MEAN CORPUSCULAR HEMOGLOBIN 32.1 pg (27.0-31.0); MEAN CORPUSCULAR HGB CONC 33.5 g/dL (32.0-36.0); MEAN CORPUSCULAR VOLUME 95.7 fL (80.0-94.0); MEAN PLATELET VOLUME 9.2 fL (7.4-11.4); MONOCYTES # (AUTO) 0.3 10^3/uL (0.0-1.0); MONOCYTES % (AUTO) 6.7 %; NEUTROPHILS # (AUTO) 3.6 10^3/uL (1.5-6.6); NEUTROPHILS % (AUTO) 71.3 %; PLT - PLATELET COUNT 135 10^3/uL (130-450); RED BLOOD COUNT 3.68 10^6/uL (4.70-6.10); WHITE BLOOD COUNT 5.1 x10^3/uL (4.8-10.8)
[2020-06-18 00:51] LABS: ALBUMIN 4.4 g/dL (3.2-5.5); ALBUMIN/GLOBULIN RATIO 1.6 (1.0-2.2); BILIRUBIN,TOTAL 0.7 mg/dL (0.2-1.0); CALCIUM 9.6 mg/dL (8.5-10.3); CREATININE 1.4 mg/dL (0.6-1.2); PARTIAL THROMBOPLASTIN TIME 38.5 secs (24.9-33.3); TOTAL PROTEIN 7.1 g/dL (6.7-8.2)
[2020-06-18] MEDS ORDERED: NITROGLYCERIN 2% PASTE TOP STA (01:03)
[2020-06-18 03:49] VITALS: BP 112/79
--- NOTE | 2020-06-18 09:19 | XRAY Report ---
PROCEDURE: Chest 1 View X-Ray INDICATIONS: chest pain TECHNIQUE: One view of the chest was acquired. COMPARISON: 01/27/2017 FINDINGS: Surgical changes and devices: Status post CABG procedure. Lungs and pleura: No pleural effusions or pneumothorax. Lungs are clear. Eventration of the left he midiaphragm. Mediastinum: Mediastinal contours appear normal. Heart size is normal. Bones and chest wall: No suspicious bony lesions. Overlying soft tissues appear unremarkable. IMPRESSION: No acute cardiopulmonary disease process. Reviewed by: Priya Yañez MD, PhD on 06/18/2020 9:18 AM PDT Approved by: Priya Yañez MD, PhD on 06/18/2020 9:18 AM PDT Station ID: [id number]
== END 2020-06-18 04:09 | disposition short-term general hospital (02) ==
LOC: EDUNIT# → ED 00:23
DX: I25.700 Atherosclerosis of coronary artery bypass graft(s), unspecified, with unstable angina pectoris (principal); I10 Essential (primary) hypertension
CPT/HCPCS: 36415; 71045; 80053; 83690; 84484; 85025; 85610; 85730; 93005; 99285; A9270

== ENCOUNTER 2020-06-18 04:09 | Outpatient (CLI) | payer MEDICARE, OTHER | END 2020-06-18 04:10 | disposition short-term general hospital (02) | LOC: EMS 04:09 | PROVIDERS: ATTEND Surgery | DX: I20.0 Unstable angina (principal) | CPT/HCPCS: A0425; A0426 ==

== ENCOUNTER 2020-07-04 08:52 | Outpatient (CLI) | payer MEDICARE, OTHER ==
[2020-07-04 09:03] LABS: BASOPHILS % (AUTO) 0.7 %; EOSINOPHILS # (AUTO) 0.2 10^3/uL (0.0-0.7); EOSINOPHILS % (AUTO) 3.3 %; HGB - HEMOGLOBIN 11.5 g/dL (14.0-18.0); LYMPHOCYTES # (AUTO) 0.8 10^3/uL (1.5-3.5); LYMPHOCYTES % (AUTO) 13.1 %; MEAN CORPUSCULAR HEMOGLOBIN 31.9 pg (27.0-31.0); MEAN CORPUSCULAR HGB CONC 32.8 g/dL (32.0-36.0); MEAN CORPUSCULAR VOLUME 97.5 fL (80.0-94.0); MEAN PLATELET VOLUME 8.8 fL (7.4-11.4); MONOCYTES # (AUTO) 0.4 10^3/uL (0.0-1.0); MONOCYTES % (AUTO) 6.4 %; NEUTROPHILS # (AUTO) 4.6 10^3/uL (1.5-6.6); PLT - PLATELET COUNT 147 10^3/uL (130-450); RED CELL DISTRIBUTION WIDTH 13.1 % (12.0-15.0); WHITE BLOOD COUNT 6.1 x10^3/uL (4.8-10.8)
[2020-07-04 09:25] LABS: % IRON SATURATION 18 % (20-50); ALBUMIN 4.3 g/dL (3.2-5.5); ALBUMIN/GLOBULIN RATIO 1.6 (1.0-2.2); ALKALINE PHOSPHATASE 69 IU/L (42-121); ALT ALANINE AMINOTRANSFERASE 25 IU/L (10-60); AST ASPARTATE AMINOTRANSFERASE 26 IU/L (10-42); BILIRUBIN,TOTAL 0.9 mg/dL (0.2-1.0); BUN - BLOOD UREA NITROGEN 27 mg/dL (6-20); CALCIUM 9.8 mg/dL (8.5-10.3); CARBON DIOXIDE - CO2 27 mmol/L (21-32); CHLORIDE 106 mmol/L (101-111); CHOL/HDL RATIO 2.4 (<5.0); CHOLESTEROL 127 mg/dL; CREATININE 1.5 mg/dL (0.6-1.2); GLUCOSE 110 mg/dL (70-100); HDL CHOLESTEROL 54 mg/dL; IRON 44 ug/dL (45-182); LDL CHOLESTEROL,CALCULATED 62 mg/dL; LDL/HDL RATIO 1.1 (<3.6); MAGNESIUM 1.9 mg/dL (1.7-2.8); SODIUM 142 mmol/L (135-145); TOTAL IRON BINDING CAPACITY 242 ug/dL (250-450); TRANSFERRIN 173 mg/dL (180-329); VLDL CHOLESTEROL 11 mg/dL
== END 2020-07-04 08:53 | disposition home or self-care (01) ==
LOC: LAB 08:52
PROVIDERS: ATTEND Physician Assistant
DX: I10 Essential (primary) hypertension (principal); I48.91 Unspecified atrial fibrillation; E78.5 Hyperlipidemia, unspecified; E83.42 Hypomagnesemia; D64.9 Anemia, unspecified
CPT/HCPCS: 36415; 80053; 80061; 82728; 83540; 83721; 83735; 84466; 85025

== ENCOUNTER 2021-02-20 17:32 | Outpatient (CLI) | payer MEDICARE, OTHER | END 2021-02-20 17:33 | disposition short-term general hospital (02) | LOC: EMS 17:32 | DX: R07.9 Chest pain, unspecified (principal); R42 Dizziness and giddiness | CPT/HCPCS: A0425; A0429 ==

== ENCOUNTER → 2021-08-26 | Outpatient (CLI) | payer MEDICARE, OTHER | END | disposition short-term general hospital (02) | LOC: EMS 02:57 | DX: R07.89 Other chest pain (principal) | CPT/HCPCS: A0425; A0427 ==

== ENCOUNTER 2021-10-05 13:48 | Outpatient (CLI) | payer MEDICARE, OTHER ==
[2021-10-05 14:05] LABS: HCT - HEMATOCRIT 32.7 % (42.0-52.0); HGB - HEMOGLOBIN 10.5 g/dL (14.0-18.0); MEAN CORPUSCULAR HEMOGLOBIN 31.2 pg (27.0-31.0); MEAN CORPUSCULAR HGB CONC 32.1 g/dL (32.0-36.0); MEAN PLATELET VOLUME 10.1 fL (7.4-11.4); RED BLOOD COUNT 3.37 10^6/uL (4.70-6.10); RED CELL DISTRIBUTION WIDTH 12.9 % (12.0-15.0)
[2021-10-05 14:15] LABS: CALCIUM 9.2 mg/dL (8.5-10.3); CREATININE 1.6 mg/dL (0.6-1.2); POTASSIUM 4.2 mmol/L (3.5-5.0)
== END 2021-10-05 13:49 | disposition home or self-care (01) ==
LOC: LAB 13:48
PROVIDERS: ATTEND Internal Medicine Cardiovascular Disease
DX: I25.10 Atherosclerotic heart disease of native coronary artery without angina pectoris (principal)
CPT/HCPCS: 36415; 80048; 85027

== ENCOUNTER 2022-10-14 10:02 | Outpatient (CLI) | payer MEDICARE, OTHER | END 2022-10-14 10:03 | disposition home or self-care (01) | LOC: LAB 10:02 | PROVIDERS: ATTEND Physician Assistant | DX: I48.91 Unspecified atrial fibrillation (principal) | CPT/HCPCS: 36416; 85610 ==

== ENCOUNTER 2022-10-26 10:20 | Outpatient (CLI) | payer MEDICARE, OTHER | END 2022-10-26 10:21 | disposition home or self-care (01) | LOC: LAB 10:20 | PROVIDERS: ATTEND Physician Assistant | DX: I48.91 Unspecified atrial fibrillation (principal) | CPT/HCPCS: 36416; 85610 ==

== ENCOUNTER 2022-12-14 10:33 | Outpatient (CLI) | payer MEDICARE, OTHER | END 2022-12-14 10:34 | disposition home or self-care (01) | LOC: LAB 10:33 | PROVIDERS: ATTEND Physician Assistant | DX: I48.91 Unspecified atrial fibrillation (principal) | CPT/HCPCS: 36416; 85610 ==

== ENCOUNTER 2023-06-01 13:52 | Outpatient (CLI) | payer MEDICARE, OTHER | END 2023-06-01 13:53 | disposition home or self-care (01) | LOC: LAB 13:52 | PROVIDERS: ATTEND Student in an Organized Health Care Education/Training Program | DX: I48.0 Paroxysmal atrial fibrillation (principal) | CPT/HCPCS: 36416; 85610 ==

== ENCOUNTER 2023-06-22 10:38 | Outpatient (CLI) | payer MEDICARE, OTHER | END 2023-06-22 10:39 | disposition home or self-care (01) | LOC: LAB 10:38 | PROVIDERS: ATTEND Physician Assistant | DX: I48.91 Unspecified atrial fibrillation (principal) | CPT/HCPCS: 36416; 85610 ==

== ENCOUNTER 2023-07-06 15:24 | Outpatient (CLI) | payer MEDICARE, OTHER | END 2023-07-06 15:25 | disposition home or self-care (01) | LOC: LAB 15:24 | PROVIDERS: ATTEND Physician Assistant | DX: I48.91 Unspecified atrial fibrillation (principal) | CPT/HCPCS: 36416; 85610 ==

== ENCOUNTER 2023-08-04 13:45 | Outpatient (CLI) | payer MEDICARE, OTHER | END 2023-08-04 13:46 | disposition home or self-care (01) | LOC: LAB 13:45 | PROVIDERS: ATTEND Physician Assistant | DX: I48.91 Unspecified atrial fibrillation (principal) | CPT/HCPCS: 36416; 85610 ==

== ENCOUNTER 2023-08-12 07:07 | Outpatient (CLI) | payer MEDICARE, OTHER | END 2023-08-12 23:59 | disposition short-term general hospital (02) | LOC: EMS 07:07 | DX: R07.89 Other chest pain (principal) | CPT/HCPCS: A0425; A0427 ==

== ENCOUNTER 2023-09-09 11:00 | Outpatient (CLI) | payer MEDICARE, OTHER | END 2023-09-09 11:01 | disposition home or self-care (01) | LOC: LAB 11:00 | PROVIDERS: ATTEND Internal Medicine | DX: I48.0 Paroxysmal atrial fibrillation (principal); Z79.01 Long term (current) use of anticoagulants | CPT/HCPCS: 36416; 85610 ==

== ENCOUNTER 2023-10-07 13:18 | Outpatient (CLI) | payer MEDICARE, OTHER | END 2023-10-07 13:19 | disposition home or self-care (01) | LOC: LAB 13:18 | PROVIDERS: ATTEND Internal Medicine | DX: I48.0 Paroxysmal atrial fibrillation (principal) | CPT/HCPCS: 36416; 85610 ==

== ENCOUNTER 2023-11-07 13:52 | Outpatient (CLI) | payer MEDICARE, OTHER | END 2023-11-07 13:53 | disposition home or self-care (01) | LOC: LAB 13:52 | PROVIDERS: ATTEND Internal Medicine | DX: I48.0 Paroxysmal atrial fibrillation (principal) | CPT/HCPCS: 36416; 85610 ==

== ENCOUNTER 2023-12-05 13:47 | Outpatient (CLI) | payer MEDICARE, OTHER | END 2023-12-05 13:48 | disposition home or self-care (01) | LOC: LAB 13:47 | PROVIDERS: ATTEND Internal Medicine | DX: I48.0 Paroxysmal atrial fibrillation (principal) | CPT/HCPCS: 36416; 85610 ==

== ENCOUNTER 2024-01-03 13:43 | Outpatient (CLI) | payer MEDICARE, OTHER | END 2024-01-03 13:44 | disposition home or self-care (01) | LOC: LAB 13:43 | PROVIDERS: ATTEND Internal Medicine | DX: I48.0 Paroxysmal atrial fibrillation (principal) | CPT/HCPCS: 36416; 85610 ==

== ENCOUNTER 2024-01-31 10:44 | Outpatient (CLI) | payer MEDICARE, OTHER ==
[2024-01-31 10:59] LABS: BASOPHILS # (AUTO) 0.1 10^3/uL (0.0-0.1); BASOPHILS % (AUTO) 0.9 %; EOSINOPHILS # (AUTO) 0.2 10^3/uL (0.0-0.7); EOSINOPHILS % (AUTO) 3.1 %; HCT - HEMATOCRIT 34.1 % (42.0-52.0); HGB - HEMOGLOBIN 10.7 g/dL (14.0-18.0); LYMPHOCYTES % (AUTO) 17.1 %; MEAN CORPUSCULAR HEMOGLOBIN 29.2 pg (27.0-31.0); MEAN CORPUSCULAR HGB CONC 31.4 g/dL (32.0-36.0); MEAN CORPUSCULAR VOLUME 93.2 fL (80.0-94.0); MEAN PLATELET VOLUME 10.3 fL (7.4-11.4); MONOCYTES # (AUTO) 0.4 10^3/uL (0.0-1.0); MONOCYTES % (AUTO) 6.3 %; NEUTROPHILS # (AUTO) 4.1 10^3/uL (1.5-6.6); NEUTROPHILS % (AUTO) 72.1 %; PLT - PLATELET COUNT 150 10^3/uL (130-450); RED BLOOD COUNT 3.66 10^6/uL (4.70-6.10); RED CELL DISTRIBUTION WIDTH 13.4 % (12.0-15.0); WHITE BLOOD COUNT 5.7 x10^3/uL (4.8-10.8)
== END 2024-01-31 10:45 | disposition home or self-care (01) ==
LOC: LAB 10:44
PROVIDERS: ATTEND Internal Medicine Cardiovascular Disease
DX: I48.0 Paroxysmal atrial fibrillation (principal); D64.9 Anemia, unspecified
CPT/HCPCS: 36415; 36416; 85025; 85610

== ENCOUNTER 2024-02-28 10:49 | Outpatient (CLI) | payer MEDICARE, OTHER | END 2024-02-28 10:50 | disposition home or self-care (01) | LOC: LAB 10:49 | PROVIDERS: ATTEND Internal Medicine | DX: I48.0 Paroxysmal atrial fibrillation (principal) | CPT/HCPCS: 36416; 85610 ==

== ENCOUNTER 2024-03-27 11:11 | Outpatient (CLI) | payer MEDICARE, OTHER | END 2024-03-27 11:12 | disposition home or self-care (01) | LOC: LAB 11:11 | PROVIDERS: ATTEND Internal Medicine Cardiovascular Disease | DX: I48.0 Paroxysmal atrial fibrillation (principal) | CPT/HCPCS: 85610 ==

== ENCOUNTER 2024-04-10 11:05 | Outpatient (CLI) | payer MEDICARE, OTHER | END 2024-04-10 11:06 | disposition home or self-care (01) | LOC: LAB 11:05 | PROVIDERS: ATTEND Internal Medicine Cardiovascular Disease | DX: I48.0 Paroxysmal atrial fibrillation (principal) | CPT/HCPCS: 36416; 85610 ==

== ENCOUNTER 2024-05-08 11:25 | Outpatient (CLI) | payer MEDICARE, OTHER | END 2024-05-08 11:26 | disposition home or self-care (01) | LOC: LAB 11:25 | PROVIDERS: ATTEND Internal Medicine Cardiovascular Disease | DX: I48.0 Paroxysmal atrial fibrillation (principal) | CPT/HCPCS: 36416; 85610 ==

== ENCOUNTER 2024-05-23 10:39 | Outpatient (CLI) | payer MEDICARE, OTHER | END 2024-05-23 10:40 | disposition home or self-care (01) | LOC: LAB 10:39 | PROVIDERS: ATTEND Internal Medicine Cardiovascular Disease | DX: I48.0 Paroxysmal atrial fibrillation (principal) | CPT/HCPCS: 36416; 85610 ==

== ENCOUNTER 2024-06-26 13:26 | Outpatient (CLI) | payer MEDICARE, OTHER | END 2024-06-26 13:27 | disposition home or self-care (01) | LOC: LAB 13:26 | PROVIDERS: ATTEND Internal Medicine Cardiovascular Disease | DX: I48.0 Paroxysmal atrial fibrillation (principal) | CPT/HCPCS: 36416; 85610 ==